=== PATIENT | male | born 1990 | race African-American/Black ===

== ENCOUNTER 2016-10-08 00:02 | Emergency (ER) | payer OTHER ==
[~2016-10-08] VITALS: Ht 170.2 cm; Wt 61.7 kg
[~2016-10-08 00:02] MED LIST: BENZ100C PO; HYDR-79 PO
[2016-10-08 00:16] VITALS: BP 127/76
--- NOTE | 2016-10-08 00:20 | PHYS DOC ---
General Chief Complaint: SHORTNESS OF BREATH Stated Complaint: HEADACHE SOA TIGHT CHEST CONGESTION Time Seen by MD: 00:19 Source: patient Problems: History of Present Illness Initial Comments Patient here for cough and shortness of breath. Patient says it started last night. He said he is felt hot and cold had some chills today at work, but has not taken his temperature. He's had a runny nose productive of yellow mucus. There is no earache or sore throat now. He did have a sore throat last night that seems to resolve. Patient's had a cough as well productive of yellow mucus , shortness of breath which is increased tonight which is what brought him to the emergency department. There is no chest pain. There is no nausea vomiting he 's been able tolerate by mouth food and fluids without difficulty. There is no abdominal pain. There's no change in bowel or bladder habits and has no focal extremity or neurologic complaints. Patient did have an inhaler at home and got after previous episode of bronchitis that used home without help. He is also use some [id number]-[id number] medication without help. He notes no other increased or decreasing factors. He has no known sick contacts. 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 Patient's past medical history is remarkable for asthma as a child. He says he has outgrown this. He does have an inhaler at home he says that sometimes when he gets sick he does have shortness of breath. He has no nebulizer. He is a nonsmoker and nonuser of ethanol. Allergies: Coded Allergies: beeswax (Unverified Allergy, Intermediate, sob, 04/12/14) Past Medical History Medical History: asthma Surgical History: noncontributory Social History Smoker: non-smoker Alcohol: none Review of Systems All Other Systems: Reviewed and Negative Physical Exam General Appearance: WD/WN, no apparent distress Ear, Nose, Throat: normal ENT inspection Neck: full range of motion, supple, normal inspection Respiratory: no respiratory distress, no accessory muscle use, decreased breath sounds, wheezing Cardiovascular: regular rate, rhythm, no edema Gastrointestinal: non tender, soft, no organomegaly Back: no CVA tenderness, no vertebral tenderness Extremities: non-tender, normal inspection, no pedal edema Neurologic/Psychiatric: alert, normal mood/affect, oriented x 3 Skin: normal color Lymphatic: no adenopathy Comments Generally this is a well-developed well-nourished male in no acute distress. Vitals are as noted. Pertinent findings on physical exam shows ears and throat were grossly clear. Neck is supple without adenopathy or JVD. There's no meningeal signs. Chest shows mildly decreased breath sounds throughout with significant inspiratory greater than expiratory wheezes, right greater than left. There is no retractions, no tachypnea, no difficulty with speech, and no signs of acute respiratory distress. Cardiac vascular exam shows regular rate and rhythm without murmur. Back shows no CVA tenderness. External ears are clear. Patient is awake alert oriented and cooperative. Remainder of physical exam is clinically unremarkable. Orders, Labs, Meds Old charts note occasional prior ER visits for viral syndrome, ankle sprain, dental caries, and kidney stone. Chest x-ray shows no acute changes per the emergency physician. 0100 Patient resting comfortably in the ED. He feels considerably better after single nebulizer treatment, and his breath sounds are much improved and only has just the barest hint of an expiratory wheeze in the left upper lobe. I discussed with the patient most likely diagnosis bronchitis with some bronchospasm. Respiratory fair therapy found he actually does have a compressor at home, but just did not have the tubing of the nebulizer device. We did administer his nebulizer that he received here in the emergency department, and I'll write him a prescription for albuterol Nebules to use at home. We'll also give him started on for several days of prednisone. We'll start him on some Zithromax as an antibiotic for his presumed bronchitis with his mucosa. We will prescribe some Tussionex as well for symptomatic relief. We discussed home care including rest, increasing fluids, use of Advil or Tylenol as needed for fever or pain. He voices understanding of the need to follow-up with primary care, to use his nebulizer at home, or return to the ER sooner as needed if worsening anyway. He looks well, with breath sounds much improved, feeling much better and back to normal as well, and okay for discharge home at this time. ANSLEY GONZALEZ MD Oct 08, 2016 00:19
[2016-10-08] MEDS ORDERED: ALBUTEROL SULFATE 2.5 MG/3 ML NEBU. ONE (00:42)
[2016-10-08] MEDS: ALBUTEROL SULFATE 2.5 MG/3 ML NEBU. NEB ONE (00:44)
[2016-10-08] MEDS: PREDNISONE 20 MG TABLET PO ONE (00:55)
[2016-10-08] MEDS ORDERED: AZITHROMYCIN 250 MG TABLET. ONE (01:16)
[2016-10-08] MEDS: AZITHROMYCIN 250 MG TABLET. PO ONE (01:19)
--- NOTE | 2016-10-08 07:16 | RAD ---
Chest, 2 views, 10/08/2016: History: Cough and congestion Comparison is made to a study from 04/20/2011. The heart size and pulmonary vascularity are normal. No pulmonary infiltrates are seen. There is no evidence of pleural fluid. IMPRESSION: No acute cardiopulmonary abnormality is detected.
== END 2016-10-08 01:21 | disposition home or self-care (01) ==
LOC: ER 00:04
DX: R05 Cough (principal); R06.02 Shortness of breath; R09.89 Other specified symptoms and signs involving the circulatory and respiratory systems; J45.909 Unspecified asthma, uncomplicated; Z91.048 Other nonmedicinal substance allergy status
CPT/HCPCS: 71020; 94640; 99284; J0456; J7512; J7613

== ENCOUNTER 2016-10-22 19:04 | Emergency (ER) | payer OTHER ==
[~2016-10-22] VITALS: Ht 162.6 cm; Wt 68.0 kg
[2016-10-22 19:45] VITALS: BP 133/76
[2016-10-22] MEDS ORDERED: HYDR-79 PO (19:51)
[2016-10-22] MEDS ORDERED: AMOX875T PO (19:51)
--- NOTE | 2016-10-22 19:53 | PHYS DOC ---
General Chief Complaint: DENTAL PROBLEM Stated Complaint: DENTAL PAIN Time Seen by MD: 19:06 Source: patient Exam Limitations: no limitations Problems: History of Present Illness Initial Comments Pt is 26/M to ED c/o dental pain. Pt states lower R back molar pain for one week. OTC was helping, pain worse today 9/10 throbbing worse chewing relieved with rest. No fever/chills/JONES/neck stiffness, no jaw or bony pain. Trying to get in to dentist, here requesting pain relief. Timing/Duration: last week Severity: severe Location: dental Prearrival Treatment: over the counter meds Associated Symptoms: tooth pain Allergies: Coded Allergies: beeswax (Unverified Allergy, Intermediate, sob, 04/12/14) Past Medical History Medical History: no pertinent history Surgical History: noncontributory Social History Smoker: non-smoker Alcohol: none Drugs: none Constitutional: denies chills, denies fever, denies malaise Ears: denies dizziness, denies pain, denies tinnitus Nose: denies clots, denies congestion, denies epistaxis Mouth: see HPI Throat: denies pain, denies swelling, denies neck stiffness Respiratory: denies cough, denies shortness of breath Cardiovascular: denies chest pain, denies palpitations Gastrointestinal: denies nausea, denies vomiting Neurological: denies headache, denies numbness, denies paresthesia Physical Exam General Appearance: WD/WN, mild distress Eyes: bilateral eye EOMI, bilateral eye PERRL, bilateral eye normal inspection Nose: normal inspection Mouth/Throat: other (gingival swelling lower left back molar no obvious tooth rot or trauma, no purulence or bony TTP) Neck: supple, trachea midline Cardiovascular/Respiratory: normal breath sounds, no respiratory distress Neurologic/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 Rx: amoxicillin, vicoprofen #20 Take meds with food. Follow up with your dentist for resolution of this condition. Call tomorrow to schedule appointment. Return to ED with new or changing symptoms. ISABELA PINON DO October 22, 2016 19:53
[2016-10-22] MEDS ORDERED: AMOXICILLIN 500 MG CAPSULE PO ONE ×2 (20:00)
== END 2016-10-22 20:00 | disposition home or self-care (01) ==
LOC: ER 19:04
DX: K04.7 Periapical abscess without sinus (principal); Z91.030 Bee allergy status
CPT/HCPCS: 99283

== ENCOUNTER 2016-11-13 14:33 | Emergency (ER) | payer OTHER ==
[~2016-11-13] VITALS: Ht 170.2 cm; Wt 68.0 kg
[~2016-11-13 14:33] MED LIST changes: +AMOX875T PO
[2016-11-13 14:52] VITALS: BP 144/66
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
--- NOTE | 2016-11-13 15:15 | PHYS DOC ---
Past History Past Medical History: No Pertinent History Past Surgical History: No Surgical History Alcohol Use: None Drug Use: None Adult General Chief Complaint Chief Complaint: SHOULDER INJURY HPI HPI This 26-year-old man was wrestling with another person and he injured his right shoulder. He states he is just pain in the right shoulder with any movement. He denies any other injuries and presents now for evaluation Review of Systems Review of Systems Constitutional: Denies fever or chills [] Eyes: Denies change in visual acuity, redness, or eye pain [] HENT: Denies nasal congestion or sore throat [] Respiratory: Denies cough or shortness of breath [] Cardiovascular: No additional information not addressed in HPI [] GI: Denies abdominal pain, nausea, vomiting, bloody stools or diarrhea [] : Denies dysuria or hematuria [] Musculoskeletal: Integument: Denies rash or skin lesions [] Neurologic: Denies headache, focal weakness or sensory changes [] Endocrine: Denies polyuria or polydipsia [] Allergies Allergies Allergies Coded Allergies Type Severity Reaction Last Updated Verified beeswax Allergy Intermediate sob 04/12/14 No Physical Exam Physical Exam Constitutional: Well developed, well nourished, no acute distress, non-toxic appearance. [] HENT: Normocephalic, atraumatic, bilateral external ears normal, oropharynx moist, no oral exudates, nose normal. [] Eyes: PERRLA, EOMI, conjunctiva normal, no discharge. [] Neck: Normal range of motion, no tenderness, supple, no stridor. [] Cardiovascular:Heart rate regular rhythm, no murmur [] Lungs & Thorax: Bilateral breath sounds clear to auscultation [] Abdomen: Bowel sounds normal, soft, no tenderness, no masses, no pulsatile masses. [] Skin: Warm, dry, no erythema, no rash. [] Back: No tenderness, no CVA tenderness. [] Extremities: Patient is tender over his right shoulder over the muscles of his shoulders and there is no deep bony tenderness patient can AP abduct his right arm he can internally rotate and abduct without difficulty] Neurologic: Alert and oriented X 3, normal motor function, normal sensory function, no focal deficits noted. [] Psychologic: Affect normal, judgement normal, mood normal. [] EKG EKG [] Radiology/Procedures Radiology/Procedures X-rays of the shoulder all negative [] Impressions: Contusion right shoulder strain right shoulder Course & Med Decision Making Course & Med Decision Making Pertinent Labs and Imaging studies reviewed. (See chart for details) The patient was reassured and instructed to wear a sling for comfort ibuprofen or Naprosyn for pain and follow-up with his doctor as needed [] Dragon Disclaimer Dragon Disclaimer This chart was dictated in whole or in part using Voice Recognition software in a busy, high-work load, and often noisy Emergency Department environment. It may contain unintended and wholly unrecognized errors or omissions. Departure Departure: Referrals: VIMAL CONNER (PCP) LAKIA ROJAS MD November 13, 2016 15:15
== END 2016-11-13 15:20 | disposition home or self-care (01) ==
LOC: ER 14:33
DX: S46.911A Strain of unspecified muscle, fascia and tendon at shoulder and upper arm level, right arm, initial encounter (principal); Z91.030 Bee allergy status; W51.XXXA Accidental striking against or bumped into by another person, initial encounter; Y93.72 Activity, wrestling; Y92.89 Other specified places as the place of occurrence of the external cause; Y99.8 Other external cause status
CPT/HCPCS: 73030; 99284

== ENCOUNTER 2017-08-23 05:15 | Emergency (ER) | payer OTHER ==
[~2017-08-23] VITALS: Ht 170.2 cm; Wt 70.3 kg
[2017-08-23 05:15] VITALS: BP 137/83
[2017-08-23] MEDS ORDERED: AZIT250T PO (06:16)
[2017-08-23] MEDS ORDERED: HYDR115S2 PO (06:16)
--- NOTE | 2017-08-23 06:16 | PHYS DOC ---
Past History Past Medical History: No Pertinent History Past Surgical History: No Surgical History Smoking: Cigarettes, Less than 1pk/day Alcohol Use: None Drug Use: None Adult General Chief Complaint Chief Complaint: SORE THROAT [facility] 27-year-old male patient complaining of sore throat, nasal congestion and dry cough for the last 1 week with headache and fever up to 101 after he had exposure to influenza at home. Patient states he woke up this morning because of increasing sore throat that getting worse with swallowing and eating and rated his pain 9/10. Patient denies chest pain, shortness of breath, vomiting. Patient states he had a few episodes of diarrhea yesterday. Review of Systems Review of Systems Constitutional: Reports fever and chills [] Eyes: Denies change in visual acuity, redness, or eye pain [] HENT: Report nasal congestion and sore throat [] Respiratory: Report cough, denies shortness of breath [] Cardiovascular: No additional information not addressed in HPI [] GI: Denies abdominal pain, nausea, vomiting, bloody stools , reports diarrhea [] : Denies dysuria or hematuria [] Musculoskeletal: Denies back pain or joint pain [] Integument: Denies rash or skin lesions [] Neurologic: Denies focal weakness or sensory changes , reports headache[] Endocrine: Denies polyuria or polydipsia [] All other systems were reviewed and found to be within normal limits, except as documented in this note. Allergies Allergies Allergies Coded Allergies Type Severity Reaction Last Updated Verified beeswax Allergy Intermediate sob 04/12/14 No fish derived Allergy Intermediate 08/23/17 Yes shellfish derived Allergy Intermediate 08/23/17 Yes Physical Exam Physical Exam Constitutional: Well developed, well nourished, mild distress, non-toxic appearance. [] HENT: Normocephalic, atraumatic, bilateral external ears normal, pharyngeal erythema and edema without exudate ,oropharynx moist, nasal congestion Eyes: PERRLA, EOMI, conjunctiva normal, no discharge. [] Neck: Normal range of motion, no tenderness, supple, no stridor. [] Cardiovascular:Heart rate regular rhythm, no murmur [] Lungs & Thorax: Bilateral breath sounds clear to auscultation [] Abdomen: Bowel sounds normal, soft, no tenderness, no masses, no pulsatile masses. [] Skin: Warm, dry, no erythema, no rash. [] Back: No tenderness, no CVA tenderness. [] Extremities: No tenderness, no cyanosis, no clubbing, ROM intact, no edema. [] Neurologic: Alert and oriented X 3, normal motor function, normal sensory function, no focal deficits noted. [] Psychologic: Affect normal, judgement normal, mood normal. [] EKG EKG [] Radiology/Procedures Radiology/Procedures [] Course & Med Decision Making Course & Med Decision Making Evaluation of patient in ER showed 27-year-old male patient with complaining of upper respiratory symptoms and sore throat for one week after exposure to flu. Patient did not want to have sick or flu test. Patient treated with ibuprofen in ER and plan to discharge home with diagnosis of pharyngitis and upper respiratory infection. Patient instructed to quit smoking. Dragon Disclaimer Dragon Disclaimer This electronic medical record was generated, in whole or in part, using a voice recognition dictation system. Departure Departure: Impression: Primary Impression: Flu-like symptoms Additional Impressions: Pharyngitis Tobacco abuse Tobacco abuse counseling Disposition: 01 HOME, SELF-CARE Condition: STABLE Referrals: VIMAL CONNER (PCP) Patient Instructions: Upper Respiratory Infection, Adult, Viral and Bacterial Pharyngitis Additional Instructions: Drink plenty liquid Follow up with your physician or return to ER if not getting better in 3-5 days Scripts Azithromycin (ZITHROMAX) 250 Mg Tablet 1 PKG PO UD, #1 PKG Prov: TERESO CHUN MD 08/23/17 Hydrocodone/Chlorphen P-Stirex (Tussionex Pennkinetic Susp) 115 Ml Jay[place].er.12h 5 ML PO BID, #120 ML Prov: TERESO CHUN MD 08/23/17 Problem Qualifiers TERESO CHUN MD Aug 23, 2017 06:16
[2017-08-23] MEDS ORDERED: IBUPROFEN 400 MG TABLET. PO ONE (06:30)
== END 2017-08-23 06:15 | disposition home or self-care (01) ==
LOC: ER 05:15
DX: J02.9 Acute pharyngitis, unspecified (principal); R19.7 Diarrhea, unspecified; R51 Headache; F17.210 Nicotine dependence, cigarettes, uncomplicated; Z71.6 Tobacco abuse counseling; Z91.013 Allergy to seafood; Z91.048 Other nonmedicinal substance allergy status
CPT/HCPCS: 99283

== ENCOUNTER 2017-08-25 22:17 | Emergency (ER) | payer OTHER ==
[~2017-08-25] VITALS: Ht 170.2 cm; Wt 70.3 kg
[~2017-08-25 22:17] MED LIST changes: +AZIT250T PO; +HYDR115S2 PO
[2017-08-25 22:33] VITALS: BP 132/86
[2017-08-25] MEDS ORDERED: OXYMETAZOLINE 0.05% NASAL SPRAY 15ML BOTTLE. NS ONE ×2 (23:24→23:45)
[2017-08-25] MEDS ORDERED: AMOX1TAB61 PO (23:25)
[2017-08-25] MEDS ORDERED: FLUT9.9S NS (23:25)
--- NOTE | 2017-08-25 23:25 | PHYS DOC ---
Past History Past Medical History: Asthma Past Surgical History: No Surgical History Smoking: Cigarettes, Less than 1pk/day Alcohol Use: None Drug Use: None Adult General Chief Complaint Chief Complaint: OTHER COMPLAINTS HPI HPI Patient is a 27 year old M who presents with bilateral sinus pressure over the past 2-3 days. Keith was seen in the emergency department 2 days ago and given a Z-Saul. He also states that he is use nasal saline rinses. He describes pressure in his forehead and cheeks. He also describes mild pain in his right ear. He denies fevers sweats or chills. He does have mild sore throat that is worse with swallowing. He is able to tolerate eating and drinking. He denies shortness of breath. Has no other associated symptoms at this time. He is not exacerbating or relieving factors. Review of Systems Review of Systems Constitutional: Denies fever or chills [] Eyes: Denies change in visual acuity, redness, or eye pain [] HENT: Negative except history of present illness Respiratory: Denies cough or shortness of breath [] Cardiovascular: No additional information not addressed in HPI [] GI: Denies abdominal pain, nausea, vomiting, bloody stools or diarrhea [] : Denies dysuria or hematuria [] Musculoskeletal: Denies back pain or joint pain [] Integument: Denies rash or skin lesions [] Neurologic: Denies focal weakness or sensory changes [] Endocrine: Denies polyuria or polydipsia [] All other systems were reviewed and found to be within normal limits, except as documented in this note. Family History Family History No pertinent family medical history was reported Current Medications Current Medications Current medications reviewed Current Medications Medications (Trade) Dose Ordered Sig/Eunice Start Time Stop Time Status Last Admin Dose Admin Oxymetazoline HCl (Afrin) 2 spray 1X ONCE 08/25/17 23:30 08/25/17 23:31 UNV Allergies Allergies Allergies Coded Allergies Type Severity Reaction Last Updated Verified beeswax Allergy Intermediate sob 04/12/14 No fish derived Allergy Intermediate 08/23/17 Yes shellfish derived Allergy Intermediate 08/23/17 Yes Physical Exam Physical Exam Constitutional: Well developed, well nourished, no acute distress, non-toxic appearance. [] HENT: Normocephalic, atraumatic, mild to moderate bilateral nasal mucosa erythema and edema, mild marginal right TM erythema, no superficial erythema noted on the face however tenderness was noted in both the frontal and maxillary sinuses bilaterally, mild tonsillar edema was noted Eyes: EOMI, conjunctiva normal, no discharge. [] Neck: Normal range of motion, no tenderness, supple, no stridor. [] Cardiovascular:Heart rate regular rhythm, Lungs & Thorax: Bilateral breath sounds clear to auscultation [] Abdomen: Bowel sounds normal, soft, no tenderness, no masses, no pulsatile masses. [] Skin: Warm, dry, no erythema, no rash. Extremities: No tenderness, no cyanosis, no clubbing, ROM intact, no edema. [] Neurologic: Alert and oriented X 3, normal motor function, normal sensory function, no focal deficits noted. [] Psychologic: Affect normal, judgement normal, mood normal. [] Current Patient Data Vital Signs Vital Signs Date Time Temp Pulse Resp B/P (MAP) Pulse Ox O2 Delivery O2 Flow Rate FiO2 08/25/17 22:33 98.6 88 16 97 Room Air EKG EKG [] Radiology/Procedures Radiology/Procedures [] Course & Med Decision Making Course & Med Decision Making Pertinent Labs and Imaging studies reviewed. (See chart for details) [] Dragon Disclaimer Dragon Disclaimer This electronic medical record was generated, in whole or in part, using a voice recognition dictation system. Departure Departure: Impression: Primary Impression: Sinusitis Disposition: 01 HOME, SELF-CARE Condition: STABLE Referrals: VIMAL CONNER (PCP) Patient Instructions: Sinusitis Additional Instructions: Keith was seen in the emergency department for sinus pressure. No emergency medical condition was found on history or physical exam. His symptoms are most consistent with sinusitis secondary to rhinitis. He is encouraged continue nasal saline rinses. He was also advised to use nasal steroid spray as well as Afrin as needed. He was advised to limit his Afrin use to a maximum of 3 days. He was also given a new prescription for Augmentin to replace his Z-Saul. He was advised follow-up with his primary care doctor as needed for further management. Scripts Fluticasone Propionate (Flonase Allergy Relief) 9.9 Ml [place].susp 1 SPRAYS NS BID for 7 Days, BOTTLE Prov: DEBBI SANCHEZ MD 08/25/17 Amoxicillin/Potassium Clav (AUGMENTIN 875-125 TABLET) 1 Each Tablet 1 TAB PO BID for 7 Days, #14 TAB Prov: DEBBI SANCHEZ MD 08/25/17 Problem Qualifiers Primary Impression: Sinusitis Sinusitis location: frontal Chronicity: subacute Qualified Codes: J01.10 - Acute frontal sinusitis, unspecified DEBBI SANCHEZ MD Aug 25, 2017 23:25
== END 2017-08-25 23:30 | disposition home or self-care (01) ==
LOC: ER 22:17
DX: J01.10 Acute frontal sinusitis, unspecified (principal); H92.01 Otalgia, right ear; J45.909 Unspecified asthma, uncomplicated; F17.210 Nicotine dependence, cigarettes, uncomplicated; Z91.013 Allergy to seafood; Z91.018 Allergy to other foods
CPT/HCPCS: 99283

== ENCOUNTER 2017-09-02 09:24 | Emergency (ER) | payer SELFPAY ==
[~2017-09-02] VITALS: Ht 170.2 cm; Wt 69.4 kg
[~2017-09-02 09:24] MED LIST changes: +AMOX1TAB61 PO; +FLUT9.9S NS
[2017-09-02] MEDS ORDERED: NAPR-683 PO (10:02)
[2017-09-02] MEDS ORDERED: CYCL-331 PO (10:02)
--- NOTE | 2017-09-02 10:09 | PHYS DOC ---
General Chief Complaint: BACK PAIN OR INJURY Stated Complaint: BACK PAIN Time Seen by MD: 09:26 Source: patient Exam Limitations: no limitations Problems: History of Present Illness Initial Comments 27-year-old male comes the ED complaining of low back pain. Patient states that he's had moderate pain across his entire low back for the past 24 hours. He states that prior to the pain he was playing basketball but denies any falls or traumatic events while playing. 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 No leg weakness no bowel or bladder symptoms no saddle anesthesia. Symptoms are worsened with movement improved with rest patient is missing work today and is requesting a note. He says that he is normally healthy and takes no daily medications. Timing/Duration: 24 hours Severity: moderate Modifying Factors: worse with movement, improves with rest Associated Symptoms: other Allergies: Coded Allergies: beeswax (Unverified Allergy, Intermediate, sob, 04/12/14) fish derived (Verified Allergy, Intermediate, 08/23/17) [place] shellfish derived (Verified Allergy, Intermediate, 08/23/17) Past Medical History Medical History: asthma Surgical History: noncontributory Social History Smoker: cigarettes Alcohol: none Drugs: none Review of Systems Constitutional: denies chills, denies diaphoresis, denies fever, denies malaise Respiratory: denies cough, denies shortness of breath Cardiovascular: denies chest pain, denies palpitations Gastrointestinal: denies nausea, denies vomiting Genitourinary: see HPI, denies frequency, denies hematuria Musculoskeletal: see HPI Psychiatric/Neurological: see HPI Physical Exam General Appearance: WD/WN, no apparent distress Ear, Nose, Throat: hearing grossly normal, normal ENT inspection Neck: full range of motion, supple Respiratory: normal breath sounds, no respiratory distress Cardiovascular: normal peripheral pulses, regular rate, rhythm Gastrointestinal: non tender, soft Back: no CVA tenderness, no vertebral tenderness Extremities: normal range of motion, non-tender Neurologic/Psychiatric: ict help 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 We will treat symptomatically and if symptoms do not improve or recur patient agrees to follow-up with his doctor. I discussed activity modification [id number] prescription medications and PCP follow-up. Discussed signs and symptoms to monitor as well as indications for urgent return department. His questions were answered satisfaction recommended smoking cessation patient expressed agreement and understanding with the treatment plan. Departure Time of Disposition: 10:05 Disposition: 01 HOME, SELF-CARE Diagnosis: low back strain Condition: GOOD Patient Instructions: Back Exercises, Generic, SportsMed, Low Back Strain with Rehab-SportsMed Additional Instructions: Please review the patient education materials given by ED staff regarding low back strain as well as prescribed exercises. Aggressive hydration with Gatorade and Powerade. Warm Epsom salt soaks 3 times daily as your able. Heating pad to affected area 15-20 minutes 4-6 times daily followed by gentle stretching. Consider reputable massage therapy or chiropractor, you may be able to get a same-day appointment today. [id number] Tylenol for baseline discomfort. Prescription: Cyclobenzaprine 10 mg quantity 30, Naprosyn 500 mg quantity 20 Sedation precautions with cyclobenzaprine. Take Naprosyn with food. Keep activity level to "pain free." Follow-up with a doctor in 1-2 weeks for recheck. Return to ED with new or changing symptoms. ALEXIA PINON DO Sep 02, 2017 10:09
[2017-09-02] MEDS ORDERED: KETOROLAC 60 MG/2 ML VIAL. IM ONE (10:15)
[2017-09-02 10:30] VITALS: BP 136/81
== END 2017-09-02 10:30 | disposition home or self-care (01) ==
LOC: ER 09:24
DX: S39.012A Strain of muscle, fascia and tendon of lower back, initial encounter (principal); J45.909 Unspecified asthma, uncomplicated; F17.210 Nicotine dependence, cigarettes, uncomplicated; Z91.013 Allergy to seafood; Z91.048 Other nonmedicinal substance allergy status; X58.XXXA Exposure to other specified factors, initial encounter; Y93.67 Activity, basketball; Y99.8 Other external cause status; Y92.89 Other specified places as the place of occurrence of the external cause
CPT/HCPCS: 99283

== ENCOUNTER 2018-03-30 21:07 | Emergency (ER) | payer OTHER ==
[~2018-03-30] VITALS: Ht 170.2 cm; Wt 64.0 kg
[~2018-03-30 21:07] MED LIST changes: +CYCL-331 PO; +NAPR-683 PO
[2018-03-30 21:10] VITALS: BP 121/81
--- NOTE | 2018-03-30 21:10 | ED.ADGEN ---
Past History Past Medical History: Asthma Past Surgical History: No Surgical History Smoking: Cigarettes, Less than 1pk/day Alcohol Use: None Drug Use: None Adult General Chief Complaint Chief Complaint ".. I just bent over to chicken picker my kids toy... and all sudden I got back pain.. I ve been using heat on it...but that has not helped...and I also got these bug bites to my arms... maybe bed bugs.. because the one hotel.. had bed bugs... " HPI HPI Patient is a 27 year old male who presents with above hx of insect bite and back pain. Patient does appear to have insect bites primarily on left upper arm and a bite on right upper arm. Possible insect bite on left side of neck. Does appear to be some surrounding inflammation. No adenopathy or striations. Patient's back pain is localized in the lumbar sacral area. Pt. rates pain 6/ 10. No midline tenderness. There is some radiation into left sciatic area. Patient denies any problems with defecation or urination. Patient denies any history of immunosuppression fevers or cancer. Patient does not return his last tetanus vaccination. Recent travel from [place]. Review of Systems Review of Systems Constitutional: Denies fever or chills [] Eyes: Denies change in visual acuity, redness, or eye pain [] HENT: Denies nasal congestion or sore throat [] Respiratory: Denies cough or shortness of breath [] Cardiovascular: No additional information not addressed in HPI [] GI: Denies abdominal pain, nausea, vomiting, bloody stools or diarrhea [] : Denies dysuria or hematuria [] Musculoskeletal: complaints of lumbar sacral back pain Integument: Denies rash . complaints of insect bites. Neurologic: Denies headache, focal weakness or sensory changes [] Endocrine: Denies polyuria or polydipsia [] All other systems were reviewed and found to be within normal limits, except as documented in this note. Family History Family History Noncontributory Current Medications Current Medications Current Medications Medications (Trade) Dose Ordered Sig/Eunice Start Time Stop Time Status Last Admin Dose Admin Ketorolac Tromethamine (Toradol Im) 60 mg 1X ONCE 03/30/18 21:45 03/30/18 21:46 DC 03/30/18 21:47 60 MG Tetanus/ Diphtheria Toxoids Adsorbed (Tenivac Vial) 0.5 ml ONCE ONCE 03/30/18 21:45 03/30/18 21:46 DC 03/30/18 21:51 0.5 ML Trimethoprim/ Sulfamethoxazole (Bactrim Ds) 1 tab 1X ONCE 03/30/18 21:45 03/30/18 21:46 DC 03/30/18 21:51 1 TAB Allergies Allergies Allergies Coded Allergies Type Severity Reaction Last Updated Verified beeswax Allergy Intermediate sob 03/30/18 No fish derived Allergy Intermediate 03/30/18 Yes shellfish derived Allergy Intermediate 03/30/18 Yes Physical Exam Physical Exam Constitutional: Well developed, well nourished, moderately acute distress, non- toxic appearance. [] HENT: Normocephalic, atraumatic, bilateral external ears normal, oropharynx moist, no oral exudates, nose normal. [] Eyes: PERRLA, EOMI, conjunctiva normal, no discharge. [] Neck: Normal range of motion, no tenderness, supple, no stridor. [] Cardiovascular:Heart rate regular rhythm, no murmur [] Lungs & Thorax: Bilateral breath sounds equal with few scattered wheezes on auscultation [] Abdomen: Bowel sounds normal, soft, no tenderness, no masses, no pulsatile masses. [] No saddle loss noted. Circumcised male. Skin: Warm, dry, no erythema, no rash. [] Insect bites as per history of present illness. Tattoos Back: Lumbar sacral muscle tenderness, no CVA tenderness. [] No midline tenderness. Extremities: No tenderness, no cyanosis, no clubbing, ROM intact, no edema. [] Straight leg lift mild sciatic pain on left. DTRs +2 at patella. Patient is ambulatory without problems. Neurologic: Alert and oriented X 3, normal motor function, normal sensory function, no focal deficits noted. [] Psychologic: Affect anxious, judgement normal, mood normal. [] EKG EKG [] Radiology/Procedures Radiology/Procedures [] Course & Med Decision Making Course & Med Decision Making Pertinent Labs and Imaging studies reviewed. (See chart for details). Patient use ice packs as needed. Patient take Tylenol and ibuprofen for pain. Marked discomfort may take Vicoprofen up 4 times a day. May use Flexeril 10 mg up 3 times a day for muscle spasm. If no improvement may need further evaluation. Follow-up primary care. Patient to massage insect bites with Polysporin 4 times a day until healed. Patient take Bactrim DS 1 tablet twice a day for the next 7 days. Return if any concerns. Patient's tetanus was updated. [] Final Impression Final Impression 1. Hx Insect bite 2. Back Pain[]- Lumbar sacral Dragon Disclaimer Dragon Disclaimer This electronic medical record was generated, in whole or in part, using a voice recognition dictation system. ABDIRIZAK VALDES MD Mar 30, 2018 21:10
[2018-03-30] MEDS ORDERED: SULF1TAB24 PO (21:23)
[2018-03-30] MEDS ORDERED: CYCL-331 PO (21:23)
[2018-03-30] MEDS ORDERED: HYDR-79 PO (21:23)
[2018-03-30] MEDS ORDERED: unisom (21:36)
[2018-03-30] MEDS ORDERED: IBUP800T19 PO (21:37)
[2018-03-30] MEDS ORDERED: KETOROLAC 60 MG/2 ML VIAL. IM ONE (21:45)
[2018-03-30] MEDS ORDERED: SMZ/TMP 800/160MG TABLET. PO ONE (21:45)
[2018-03-30] MEDS ORDERED: TETANUS AND DIPHTHERIA TOX/PF 0.5 ML VIAL. VAX IM ONE (21:45)
== END 2018-03-30 21:58 | disposition home or self-care (01) ==
LOC: ER 21:07
DX: M54.5 Low back pain (principal); S60.562A Insect bite (nonvenomous) of left hand, initial encounter; S60.561A Insect bite (nonvenomous) of right hand, initial encounter; J45.909 Unspecified asthma, uncomplicated; F17.210 Nicotine dependence, cigarettes, uncomplicated; Z88.8 Allergy status to other drugs, medicaments and biological substances; Z91.013 Allergy to seafood; W57.XXXA Bitten or stung by nonvenomous insect and other nonvenomous arthropods, initial encounter; Y93.89 Activity, other specified; Y92.89 Other specified places as the place of occurrence of the external cause; Y99.8 Other external cause status
CPT/HCPCS: 90471; 90714; 96372; 99284; J1885

== ENCOUNTER 2018-05-10 17:16 | Emergency (ER) | payer OTHER ==
[~2018-05-10] VITALS: Ht 170.2 cm; Wt 68.0 kg
[~2018-05-10 17:16] MED LIST changes: +IBUP800T19 PO; +SULF1TAB24 PO; +unisom
[2018-05-10 17:25] VITALS: BP 130/72
[2018-05-10] MEDS ORDERED: OXYC-323 PO (17:46)
--- NOTE | 2018-05-10 17:46 | PHYS DOC ---
Past History Past Medical History: No Pertinent History Past Surgical History: Other Smoking: Cigarettes, Less than 1pk/day Alcohol Use: None Drug Use: None Adult General Chief Complaint Chief Complaint: ANKLE PROBLEM HPI HPI Patient is a 28-year-old male who presents with right lower leg pain after running out of pain medication. Patient was diagnosed with Achilles tendon rupture on the of this month. Patient had been playing basketball when the injury occurred. He states that he was given a three-day prescription for oxycodone and he ran out of his medication yesterday. Patient states that he has been taking naproxen, ibuprofen and Goody powder without relief. He has an appointment with orthopedics this coming Saturday the . Review of Systems Review of Systems Constitutional: Denies fever or chills [] Respiratory: Denies cough or shortness of breath [] Cardiovascular: No additional information not addressed in HPI [] Musculoskeletal: Right lower leg/calf pain[] Integument: Denies rash or skin lesions [] Allergies Allergies Allergies Coded Allergies Type Severity Reaction Last Updated Verified beeswax Allergy Intermediate sob 03/30/18 No fish derived Allergy Intermediate 03/30/18 Yes shellfish derived Allergy Intermediate 03/30/18 Yes Physical Exam Physical Exam Constitutional: Well developed, well nourished, no acute distress, non-toxic appearance. [] Cardiovascular:Heart rate regular rhythm, no murmur [] Lungs & Thorax: Bilateral breath sounds clear to auscultation [] Extremities: Right leg is in ortho boot. Boot not removed for further examination. [] Neurologic: Alert and oriented X 3, normal motor function, normal sensory function, no focal deficits noted. [] Current Patient Data Vital Signs Vital Signs Date Time Temp Pulse Resp B/P (MAP) Pulse Ox O2 Delivery O2 Flow Rate FiO2 05/10/18 17:25 98.3 84 16 99 Room Air EKG EKG [] Radiology/Procedures Radiology/Procedures [] Course & Med Decision Making Course & Med Decision Making Pertinent Labs and Imaging studies reviewed. (See chart for details) [] Dragon Disclaimer Dragon Disclaimer This electronic medical record was generated, in whole or in part, using a voice recognition dictation system. Departure Departure: Impression: Primary Impression: Achilles rupture, right Disposition: HOME, SELF-CARE Condition: STABLE Referrals: VIMAL CONNER (PCP) Patient Instructions: Achilles Tendon Rupture (Complete) Scripts Oxycodone Hcl/Acetaminophen (PERCOCET 5-325 MG TABLET) 1 Each Tablet 1 TAB PO QID PRN for PAIN, #20 TAB Prov: ANISHA GIRON Jr., DO 05/10/18 Problem Qualifiers Primary Impression: Achilles rupture, right Encounter type: initial encounter Qualified Codes: S86.011A - Strain of right Achilles tendon, initial encounter ANISHA GIRON Jr., DO May 10, 2018 17:46
[2018-05-10] MEDS ORDERED: oxyCODONE/APAP 5/325 1 TAB TABLET PO ONE (18:00)
== END 2018-05-10 17:52 | disposition home or self-care (01) ==
LOC: ER 17:16
DX: S86.011A Strain of right Achilles tendon, initial encounter (principal); F17.210 Nicotine dependence, cigarettes, uncomplicated; Z91.013 Allergy to seafood; Z91.048 Other nonmedicinal substance allergy status; X58.XXXA Exposure to other specified factors, initial encounter; Y93.67 Activity, basketball; Y92.89 Other specified places as the place of occurrence of the external cause; Y99.8 Other external cause status
CPT/HCPCS: 99283

== ENCOUNTER 2018-06-01 01:17 | Emergency (ER) | payer OTHER ==
[~2018-06-01] VITALS: Ht 170.2 cm; Wt 68.0 kg
[~2018-06-01 01:17] MED LIST changes: +HYDR-1179 PO; -HYDR-79 PO; +OXYC1TAB15 PO
--- NOTE | 2018-06-01 01:20 | ED.ADGEN ---
Past History Past Medical History: No Pertinent History, Anxiety Past Surgical History: Other Additional Past Surgical Histo: Recent Rt. Achilles tendon repair 05/23/18 Smoking: Cigarettes, Less than 1pk/day Alcohol Use: None Drug Use: None Adult General Chief Complaint Chief Complaint ".. I just don't want to be alive anymore... been thinking about killing my self.. I ve never had these thoughts before... I got all kinds of shit .. stress crap.... my father who I have not seen for 20 yrs showed up... 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 my girl friend is giving me shit... I can't work because of this messed up leg....".. " I just don't want to be alive anymore..." HPI HPI Patient is a 28 year old male who presents with above hx and complaints depression, anxiety and suicidal ideation. Patient does not have any specific plan he admits to forming. Patient denies illicit drug use. Patient denies previous history of depression. Patient has recently underwent Achilles tendon repair from an injury on 05/04 on 05/23. Patient reports multiple social stressors- with girlfriend, father, and inability to work. Patient denies any legal issues. No recent travel or specific ill contacts. No history immunosuppression. Review of Systems Review of Systems Constitutional: Denies fever or chills [] Eyes: Denies change in visual acuity, redness, or eye pain [] HENT: Denies nasal congestion or sore throat [] Respiratory: Denies cough or shortness of breath [] Cardiovascular: No additional information not addressed in HPI [] GI: Denies abdominal pain, nausea, vomiting, bloody stools or diarrhea [] : Denies dysuria or hematuria [] Musculoskeletal: Denies back pain or joint pain []complaints of right Achilles pain from surgery on -Achilles tendon repair. Integument: Denies rash or skin lesions [] Neurologic: Denies headache, focal weakness or sensory changes [] Endocrine: Denies polyuria or polydipsia [] All other systems were reviewed and found to be within normal limits, except as documented in this note. Family History Family History Father had history of polysubstance abuse Current Medications Current Medications Current Medications Medications (Trade) Dose Ordered Sig/Eunice Start Time Stop Time Status Last Admin Dose Admin Ibuprofen (Motrin) 600 mg 1X ONCE 06/01/18 05:00 06/01/18 05:01 DC 06/01/18 04:50 600 MG Lactated Ringer's 1,000 ml @ 1,000 mls/hr Q1H 06/01/18 01:33 06/01/18 02:32 DC 06/01/18 02:26 1,000 MLS/HR Potassium Chloride (KCl Oral Soln) 20 meq 1X ONCE 06/01/18 04:30 06/01/18 04:31 DC 06/01/18 04:50 20 MEQ Allergies Allergies Allergies Coded Allergies Type Severity Reaction Last Updated Verified beeswax Allergy Intermediate sob 03/30/18 No fish derived Allergy Intermediate 03/30/18 Yes shellfish derived Allergy Intermediate 03/30/18 Yes Physical Exam Physical Exam Constitutional: Well developed, well nourished, in moderate emotional distress, non-toxic appearance. [] HENT: Normocephalic, atraumatic, bilateral external ears normal, oropharynx moist, no oral exudates, nose normal. [] Eyes: PERRLA, EOMI, conjunctiva normal, no discharge. [] Neck: Normal range of motion, no tenderness, supple, no stridor. [] Cardiovascular:Heart rate regular rhythm, no murmur [] Lungs & Thorax: Bilateral breath sounds clear to auscultation [] Abdomen: Bowel sounds normal, soft, no tenderness, no masses, no pulsatile masses. [] Skin: Warm, dry, no erythema, no rash. [] Back: No tenderness, no CVA tenderness. [] Extremities: No tenderness, no cyanosis, no clubbing, ROM intact, no edema. [] Neurologic: Alert and oriented X 3, normal motor function, normal sensory function, no focal deficits noted. [] Psychologic: Affect anxious, judgement normal, mood depressed. Poor eye contact. Current Patient Data Vital Signs Vital Signs Date Time Temp Pulse Resp B/P (MAP) Pulse Ox O2 Delivery O2 Flow Rate FiO2 06/01/18 02:49 98.7 103 18 97 Room Air Lab Results Laboratory Tests Test 06/01/18 02:15 White Blood Count 7.1 x10^3/uL (4.0-11.0) Red Blood Count 4.73 x10^6/uL (4.30-5.70) Hemoglobin 13.8 g/dL (13.0-17.5) Hematocrit 40.0 % (39.0-53.0) Mean Corpuscular Volume 85 fL (79-100) Mean Corpuscular Hemoglobin 29 pg (25-35) Mean Corpuscular Hemoglobin Concent 34 g/dL (31-37) Red Cell Distribution Width 12.6 % (11.5-14.5) Platelet Count 237 x10^3/uL (140-400) Neutrophils (%) (Auto) 57 % (31-73) Lymphocytes (%) (Auto) 33 % (24-48) Monocytes (%) (Auto) 8 % (0-9) Eosinophils (%) (Auto) 2 % (0-3) Basophils (%) (Auto) 1 % (0-3) Neutrophils # (Auto) 4.0 x10^3uL (1.8-7.7) Lymphocytes # (Auto) 2.3 x10^3/uL (1.0-4.8) Monocytes # (Auto) 0.5 x10^3/uL (0.0-1.1) Eosinophils # (Auto) 0.1 x10^3/uL (0.0-0.7) Basophils # (Auto) 0.0 x10^3/uL (0.0-0.2) Urine Collection Type Unknown Urine Color Red Urine Clarity Cloudy Urine pH 6.0 Urine Specific [place] 1.010 Urine Protein 30 mg/dl (NEG-TRACE) Urine Glucose (UA) Neg mg/dL (NEG) Urine Ketones (Stick) Neg mg/dL (NEG) Urine Blood Large (NEG) Urine Nitrite Neg (NEG) Urine Bilirubin Neg (NEG) Urine Urobilinogen Dipstick 0.2 mg/dL (0.2 mg/dL) Urine Leukocyte Esterase Neg (NEG) Urine RBC Tntc /HPF (0-2) Urine WBC Occ /HPF (0-4) Urine Squamous Epithelial Cells Occ /LPF Urine Bacteria 0 /HPF (0-FEW) Sodium Level 142 mmol/L (136-145) Potassium Level 3.2 mmol/L (3.5-5.1) L Chloride Level 103 mmol/L (98-107) Carbon Dioxide Level 24 mmol/L (21-32) Anion Gap 15 (6-14) H Blood Urea Nitrogen 11 mg/dL (8-26) Creatinine 0.9 mg/dL (0.7-1.3) Estimated GFR (Cockcroft-Gault) 123.4 Glucose Level 96 mg/dL (70-99) Calcium Level 8.9 mg/dL (8.5-10.1) Total Bilirubin 0.4 mg/dL (0.2-1.0) Direct Bilirubin 0.1 mg/dL (0.0-0.2) Aspartate Amino Transferase (AST) 16 U/L (15-37) Alanine Aminotransferase (ALT) 26 U/L (16-63) Alkaline Phosphatase 75 U/L (46-116) Total Protein 7.4 g/dL (6.4-8.2) Albumin 4.3 g/dL (3.4-5.0) Urine Opiates Screen Pos (NEG) Urine Methadone Screen Neg (NEG) Urine Barbiturates Neg (NEG) Urine Phencyclidine Screen Neg (NEG) Urine Amphetamine/Methamphetamine Neg (NEG) Urine Benzodiazepines Screen Neg (NEG) Urine Cocaine Screen Neg (NEG) Urine Cannabinoids Screen Neg (NEG) Ethyl Alcohol Level < 10 mg/dL (0-10) Urine Ethyl Alcohol Neg (NEG) EKG EKG My interpretation of EKG shows a sinus rhythm at 91 bpm. No acute morphology[] Radiology/Procedures Radiology/Procedures [] Course & Med Decision Making Course & Med Decision Making Pertinent Labs and Imaging studies reviewed. (See chart for details) See [facility] - Report. Pt. to follow up at [facility]. Safe plan. Pt. to push fluids. Follow up urine test at primary. Return if any concerns. Push fruit drinks. [] Final Impression Final Impression 1. Suicidal ideation 2. Depression 3. Anxiety[] 4. Hematuria 5. Hypokalemia Dragon Disclaimer Dragon Disclaimer This electronic medical record was generated, in whole or in part, using a voice recognition dictation system. ABDIRIZAK VALDES MD Jun 01, 2018 01:19
[2018-06-01] MEDS ORDERED: IV RINGERS SOLUTION,LACTATED 1,000 ML IV SCH (01:33)
--- NOTE | 2018-06-01 01:58 | EKG ---
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
[2018-06-01 02:49] VITALS: BP 157/92
[2018-06-01 02:51] LABS: ALBUMIN 4.3 g/dL (3.4-5.0); CALCIUM 8.9 mg/dL (8.5-10.1); CREATININE 0.9 mg/dL (0.7-1.3); DIRECT BILIRUBIN 0.1 mg/dL (0.0-0.2); GFR 123.4; POTASSIUM 3.2 mmol/L (3.5-5.1); TOTAL BILIRUBIN 0.4 mg/dL (0.2-1.0); TOTAL PROTEIN 7.4 g/dL (6.4-8.2)
[2018-06-01 02:55] LABS: BACTERIA,URINE 0 /HPF (0-FEW); BILIRUBIN,URINE NEG (NEG); CLARITY,URINE CLOUDY; COLOR,URINE RED; GLUCOSE,URINE NEG (NEG); NITRITE,URINE NEG (NEG); RBC,URINE TNTC /HPF (0-2); SQUAMOUS EPITHELIAL CELL,UR OCC /LPF; UROBILINOGEN,URINE 0.2 mg/dL (0.2 mg/dL); WBC,URINE OCC /HPF (0-4)
[2018-06-01 02:56] LABS: BARBITURATES NEG (NEG); BENZODIAZEPINES NEG (NEG); CANNABINOIDS NEG (NEG); COCAINE NEG (NEG); METHADONE NEG (NEG); OPIATES POS (NEG); PHENCYCLIDINE NEG (NEG)
[2018-06-01 02:58] LABS: BASO % 1 % (0-3); EOS # 0.1 x10^3/uL (0.0-0.7); EOS % 2 % (0-3); HEMOGLOBIN 13.8 g/dL (13.0-17.5); LYMPH # 2.3 x10^3/uL (1.0-4.8); LYMPH % 33 % (24-48); MEAN CORPUSCULAR HEMOGLOBIN 29 pg (25-35); MEAN CORPUSCULAR HGB CONC 34 g/dL (31-37); MEAN CORPUSCULAR VOLUME 85 fL (79-100); MONO # 0.5 x10^3/uL (0.0-1.1); MONO % 8 % (0-9); NEUT % 57 % (31-73); PLATELET COUNT 237 x10^3/uL (140-400); RED BLOOD COUNT 4.73 x10^6/uL (4.30-5.70); RED CELL DISTRIBUTION WIDTH 12.6 % (11.5-14.5); WHITE BLOOD COUNT 7.1 x10^3/uL (4.0-11.0)
[2018-06-01 02:59] LABS: AMPHETAMINE/METHAMPHETAMINE NEG (NEG)
[2018-06-01] MEDS ORDERED: POTASSIUM CHLORIDE 20 MEQ/15 ML ORAL LIQUID. PEG ONE (04:30)
[2018-06-01] MEDS ORDERED: IBUPROFEN 600 MG TABLET. PO ONE (05:00)
== END 2018-06-01 05:44 | disposition home or self-care (01) ==
LOC: ER 01:17
DX: R45.851 Suicidal ideations (principal); F32.9 Major depressive disorder, single episode, unspecified; F41.9 Anxiety disorder, unspecified; R31.9 Hematuria, unspecified; E87.6 Hypokalemia; F17.210 Nicotine dependence, cigarettes, uncomplicated; Z98.890 Other specified postprocedural states; Z88.8 Allergy status to other drugs, medicaments and biological substances; Z91.013 Allergy to seafood
CPT/HCPCS: 36415; 80048; 80076; 80307; 81001; 84443; 85025; 93005; 99284; G0480; J7120

== ENCOUNTER 2018-12-02 20:59 | Emergency (ER) | payer OTHER ==
[~2018-12-02] VITALS: Ht 170.2 cm; Wt 64.0 kg
[2018-12-02 21:12] VITALS: BP 133/68
[2018-12-02] MEDS ORDERED: HYDR-3165 PO (21:26)
[2018-12-02] MEDS ORDERED: AMOX500C PO (21:26)
--- NOTE | 2018-12-02 21:27 | PHYS DOC ---
Past History Past Medical History: Kidney Stones Past Surgical History: Other Additional Past Surgical Histo: Recent Rt. Achilles tendon repair 05/23/18 Smoking: Cigarettes, Less than 1pk/day Additional Smoking Information: " I usually vape" Alcohol Use: None Drug Use: None Adult General Chief Complaint Chief Complaint: DENTAL PROBLEM HPI HPI Patient is a 28 year old male who presents with complaint of dental pain. Patient states that he cracked one of his right upper teeth in the past, however broke another part of it again tonight while eating a Pop Tart. States that he is having moderate to severe pain at this area. States that he plans on following with a dentist in the next 2 days. States he is concerned about his pain currently and feels that it will likely worsen as he has had this happen before in the past. Denies any other symptoms or injuries. States that the pain is localized to the affected tooth. Denies radiation of pain. States he took naproxen earlier this evening with no relief in symptoms. Review of Systems Review of Systems Constitutional: Denies fever or chills [] Eyes: Denies change in visual acuity, redness, or eye pain [] HENT: Dental pain[] Respiratory: Denies cough or shortness of breath [] Cardiovascular: Denies chest pain or edema[] GI: Denies abdominal pain, nausea, vomiting, bloody stools or diarrhea [] : Denies dysuria or hematuria [] Musculoskeletal: Denies back pain or joint pain [] Integument: Denies rash or skin lesions [] Neurologic: Denies headache, focal weakness or sensory changes [] All other systems were reviewed and found to be within normal limits, except as documented in this note. Allergies Allergies Allergies Coded Allergies Type Severity Reaction Last Updated Verified beeswax Allergy Intermediate sob 03/30/18 No fish derived Allergy Intermediate 03/30/18 Yes shellfish derived Allergy Intermediate 03/30/18 Yes Physical Exam Physical Exam Constitutional: Alert, afebrile, no acute distress. [] HENT: Normocephalic, atraumatic, bilateral external ears normal, oropharynx moist, tooth #5 with significant dental caries and fracture of crown to root, direct tenderness to palpation, no gingival swelling, erythema, or fluctuance noted, no oral exudates, nose normal. [] Eyes: PERRLA, EOMI, conjunctiva normal, no discharge. [] Neck: Normal range of motion, no tenderness, supple, no stridor. [] Cardiovascular:Heart rate regular rhythm, no murmur [] Lungs & Thorax: Bilateral breath sounds clear to auscultation [] Abdomen: Bowel sounds normal, soft, no tenderness, no masses, no pulsatile mas ses. [] Skin: Warm, dry, no erythema, no rash. [] Back: No tenderness, no CVA tenderness. [] Extremities: No tenderness, no cyanosis, no clubbing, ROM intact, no edema. [] Neurologic: Alert and oriented X 3, normal motor function, normal sensory function, no focal deficits noted. [] Current Patient Data Vital Signs Vital Signs Date Time Temp Pulse Resp B/P (MAP) Pulse Ox O2 Delivery O2 Flow Rate FiO2 12/02/18 21:12 98.9 87 16 97 Room Air Lab Results Not performed EKG EKG Not performed[] Radiology/Procedures Radiology/Procedures Not performed[] Course & Med Decision Making Course & Med Decision Making Pertinent Labs and Imaging studies reviewed. (See chart for details) Patient prescribed amoxicillin and [place]. Advised follow-up with dentist in the next 2 days for reevaluation. Advised return to emergency department for any worsening symptoms. Patient was understanding and in agreement with treatment plan.[] Dragon Disclaimer Dragon Disclaimer This electronic medical record was generated, in whole or in part, using a voice recognition dictation system. Departure Departure: Impression: Primary Impression: Pain, dental Disposition: HOME, SELF-CARE Condition: STABLE Referrals: VIMAL CONNER (PCP) Patient Instructions: Dental Pain Additional Instructions: Follow-up with her dentist in the next 2-3 days for reevaluation and return to the emergency department for any worsening symptoms. Scripts Hydrocodone Bit/Acetaminophen (NORCO 5-325 TABLET) 1 Each Tablet 1 TAB PO Q4HRS PRN for PAIN, #20 TAB Prov: AMA ARTEAGA MD 12/02/18 Amoxicillin (AMOXICILLIN) 500 Mg Capsule 1 CAP PO TID, #30 CAP Prov: AMA ARTEAGA MD 12/02/18 AMA ARTEAGA MD Dec 02, 2018 21:27
== END 2018-12-02 21:34 | disposition home or self-care (01) ==
LOC: ER 20:59
DX: S02.5XXA Fracture of tooth (traumatic), initial encounter for closed fracture (principal); K02.9 Dental caries, unspecified; F17.210 Nicotine dependence, cigarettes, uncomplicated; Z87.442 Personal history of urinary calculi; Z88.8 Allergy status to other drugs, medicaments and biological substances; Z91.013 Allergy to seafood; X58.XXXA Exposure to other specified factors, initial encounter; Y93.89 Activity, other specified; Y92.89 Other specified places as the place of occurrence of the external cause; Y99.8 Other external cause status
CPT/HCPCS: 99283

== ENCOUNTER 2019-03-09 18:29 | Emergency (ER) | payer SELFPAY ==
[~2019-03-09] VITALS: Ht 170.2 cm; Wt 71.0 kg
[~2019-03-09 18:29] MED LIST changes: +AMOX500C PO; +HYDR-3165 PO
--- NOTE | 2019-03-09 18:37 | ED.ADGEN ---
Past History Past Medical History: Kidney Stones Past Surgical History: Other Additional Past Surgical Histo: Recent Rt. Achilles tendon repair 05/23/18 Smoking: Cigarettes, Less than 1pk/day Alcohol Use: None Drug Use: None Adult General Chief Complaint Chief Complaint ".. I having some discomfort in my abdomen.. It not like a kidney stone.. I ve had that before.. It here on the Lt. .. and lower... " HPI HPI Patient is a 28 year old male who presents with above hx and complaints left lower abdomen discomfort. Patient denies any flank tenderness. Has had a previous history of kidney stones. No history of injury. No history of travel. No history of specific ill contacts. No history of penile discharge. No fears of STD. Patient denies any history immunosuppression. Has had normal stools. Review of Systems Review of Systems Constitutional: Denies fever or chills [] Eyes: Denies change in visual acuity, redness, or eye pain [] HENT: Denies nasal congestion or sore throat [] Respiratory: Denies cough or shortness of breath [] Cardiovascular: No additional information not addressed in HPI [] GI: complaints of Lt. abdomen discomfort or abdominal pain, nausea. Denies, vomiting, bloody stools or diarrhea [] : Denies dysuria or hematuria [] Musculoskeletal: Denies back pain or joint pain [] Integument: Denies rash or skin lesions [] Neurologic: Denies headache, focal weakness or sensory changes [] Endocrine: Denies polyuria or polydipsia [] All other systems were reviewed and found to be within normal limits, except as documented in this note. Family History Family History Noncontributory Current Medications Current Medications Current Medications Medications (Trade) Dose Ordered Sig/Eunice Start Time Stop Time Status Last Admin Dose Admin Lactated Ringer's 1,000 ml @ 1,000 mls/hr Q1H 03/09/19 19:13 03/09/19 20:12 DC 03/09/19 19:53 1,000 MLS/HR Levofloxacin (Levaquin) 500 mg 1X ONCE 03/09/19 22:30 03/09/19 22:12 DC 03/09/19 22:05 500 MG Magnesium Hydroxide (Milk Of Magnesia) 2,400 mg 1X ONCE 03/09/19 20:30 03/09/19 20:31 DC 03/09/19 20:21 2,400 MG Allergies Allergies Allergies Coded Allergies Type Severity Reaction Last Updated Verified beeswax Allergy Intermediate sob 03/30/18 No fish derived Allergy Intermediate 03/30/18 Yes shellfish derived Allergy Intermediate 03/30/18 Yes Physical Exam Physical Exam Constitutional: Well developed, well nourished, moderate acute distress, non- toxic appearance. [] HENT: Normocephalic, atraumatic, bilateral external ears normal, oropharynx moist, no oral exudates, nose normal. [] Eyes: PERRLA, EOMI, conjunctiva normal, no discharge. [] Neck: Normal range of motion, no tenderness, supple, no stridor. [] Cardiovascular:Heart rate regular rhythm, no murmur [] Lungs & Thorax: Bilateral breath sounds equal at apex auscultation [] Abdomen: Bowel sounds normal, soft, lower mid abdomen and left lower tenderness, no masses, no pulsatile masses. Declines rectal exam this time. Mild rebound to mid left abdomen Skin: Warm, dry, no erythema, no rash. [] Back: No tenderness, no CVA tenderness. [] Extremities: No tenderness, no cyanosis, no clubbing, ROM intact, no edema. [] Neurologic: Alert and oriented X 3, normal motor function, normal sensory function, no focal deficits noted. [] Psychologic: Affect anxious, judgement normal, mood normal. [] Current Patient Data Vital Signs Vital Signs Date Time Temp Pulse Resp B/P (MAP) Pulse Ox O2 Delivery O2 Flow Rate FiO2 03/09/19 22:05 66 18 142/89 (106) 99 Room Air 03/09/19 18:29 98.5 Lab Results Laboratory Tests Test 03/09/19 18:52 03/09/19 19:00 Urine Collection Type Unknown Urine Color Do Urine Clarity Cloudy Urine pH 6.0 Urine Specific [place] >=1.030 Urine Protein 100 mg/dl (NEG-TRACE) Urine Glucose (UA) Neg mg/dL (NEG) Urine Ketones (Stick) Neg mg/dL (NEG) Urine Blood Large (NEG) Urine Nitrite Neg (NEG) Urine Bilirubin Neg (NEG) Urine Urobilinogen Dipstick 1 mg/dL (0.2 mg/dL) Urine Leukocyte Esterase Neg (NEG) Urine RBC Tntc /HPF (0-2) Urine WBC Occ /HPF (0-4) Urine Squamous Epithelial Cells None /LPF Urine Bacteria Few /HPF (0-FEW) Urine Mucus Slight /LPF Urine Opiates Screen Pos (NEG) Urine Methadone Screen Neg (NEG) Urine Barbiturates Neg (NEG) Urine Phencyclidine Screen Neg (NEG) Urine Amphetamine/Methamphetamine Neg (NEG) Urine Benzodiazepines Screen Neg (NEG) Urine Cocaine Screen Neg (NEG) Urine Cannabinoids Screen Neg (NEG) Urine Ethyl Alcohol Neg (NEG) White Blood Count 6.9 x10^3/uL (4.0-11.0) Red Blood Count 4.92 x10^6/uL (4.30-5.70) Hemoglobin 14.3 g/dL (13.0-17.5) Hematocrit 43.1 % (39.0-53.0) Mean Corpuscular Volume 88 fL (79-100) Mean Corpuscular Hemoglobin 29 pg (25-35) Mean Corpuscular Hemoglobin Concent 33 g/dL (31-37) Red Cell Distribution Width 12.9 % (11.5-14.5) Platelet Count 265 x10^3/uL (140-400) Neutrophils (%) (Auto) 45 % (31-73) Lymphocytes (%) (Auto) 45 % (24-48) Monocytes (%) (Auto) 7 % (0-9) Eosinophils (%) (Auto) 2 % (0-3) Basophils (%) (Auto) 1 % (0-3) Neutrophils # (Auto) 3.1 x10^3uL (1.8-7.7) Lymphocytes # (Auto) 3.1 x10^3/uL (1.0-4.8) Monocytes # (Auto) 0.5 x10^3/uL (0.0-1.1) Eosinophils # (Auto) 0.1 x10^3/uL (0.0-0.7) Basophils # (Auto) 0.1 x10^3/uL (0.0-0.2) Sodium Level 144 mmol/L (136-145) Potassium Level 3.3 mmol/L (3.5-5.1) L Chloride Level 105 mmol/L (98-107) Carbon Dioxide Level 27 mmol/L (21-32) Anion Gap 12 (6-14) Blood Urea Nitrogen 12 mg/dL (8-26) Creatinine 0.9 mg/dL (0.7-1.3) Estimated GFR (Cockcroft-Gault) 123.4 Glucose Level 87 mg/dL (70-99) Calcium Level 8.8 mg/dL (8.5-10.1) Total Bilirubin 0.5 mg/dL (0.2-1.0) Direct Bilirubin 0.1 mg/dL (0.0-0.2) Aspartate Amino Transferase (AST) 18 U/L (15-37) Alanine Aminotransferase (ALT) 19 U/L (16-63) Alkaline Phosphatase 86 U/L (46-116) Total Protein 7.9 g/dL (6.4-8.2) Albumin 4.7 g/dL (3.4-5.0) Amylase Level 67 U/L (25-115) Lipase 171 U/L (73-393) EKG EKG [] Radiology/Procedures Radiology/Procedures Rotation of acute abdomen film shows nonspecific bowel gas pattern. There is some increased stool . [][place] [address] IMAGING REPORT Signed PATIENT: MELISSA FREEMAN ACCOUNT: [id number] : 1990 LOCATION: ER AGE: 28 SEX: M EXAM STATUS: REG ER ORD. PHYSICIAN: ABDIRIZAK VALDES MD REASON: discomfort, hematuria PROCEDURE: CT ABDOMEN PELVIS WO CONTRAST Examination: CT ABDOMEN PELVIS WO CONTRAST History: Discomfort, hematuria Comparison/Correlation: 04/12/2014 CT abdomen pelvis without contrast Findings: Axial images of the abdomen and pelvis were obtained without contrast. Sagittal and coronal reformatted images provided. Visualized lung bases are clear. Unenhanced liver, spleen, pancreas, and adrenal glands are normal. Gallbladder fossa is unremarkable. There are 2 punctate calculi. Present at the right renal inferior pole calyces. Slightly high density of medullary pyramids is noted greater on the right noted. No hydronephrosis or collecting system obstruction. Urinary bladder is mostly decompressed and unremarkable. Appendix is normal. Moderate quantity of stool in the colon noted. No bowel obstruction. No extraluminal gas. Bony structures are unremarkable. Impression: Nonobstructive right renal calyceal calculi. Early medullary nephrocalcinosis. Findings are similar upon correlation with 04/12/2014 CT of the kidneys without contrast exam. No collecting system obstruction. If mass lesion is a persistent concern, consider CT of the kidneys. IVP urogram protocol with contrast on a nonemergent basis. PQRS Compliance Statement: One or more of the following individualized dose reduction techniques were utilized for this examination: 1. Automated exposure control 2. Adjustment of the mA and/or kV according to patient size 3. Use of iterative reconstruction technique Electronically signed by: Mitch Smith MD (03/09/2019 9:30 PM) [facility] DICTATED AND SIGNED BY: MITCH SMITH MD DATE: 03/09/192129 CC: ABDIRIZAK VALDES MD; [facility]IM[facility] CONNER ~ Course & Med Decision Making Course & Med Decision Making Pertinent Labs and Imaging studies reviewed. (See chart for details) Push fluids and vitamin C drinks. Recommend patient follow-up primary. Patient declines CT with contrast to evaluate abdomen further. No findings of hydronephrosis or symptoms started with renal stone passage. Will start patient on Levaquin. Recommend patient follow- up urology. Recommend patient to get CT with contrast if persistent symptoms. [] Final Impression Final Impression 1. Hematuria 2. Abdomen discomfort[] Dragon Disclaimer Dragon Disclaimer This electronic medical record was generated, in whole or in part, using a voice recognition dictation system. Dragon Disclaimer This chart was dictated in whole or in part using Voice Recognition software in a busy, high-work load, and often noisy Emergency Department environment. It may contain unintended and wholly unrecognized errors or omissions. ABDIRIZAK VALDES MD Mar 09, 2019 18:37
[2019-03-09] MEDS ORDERED: IV RINGERS SOLUTION,LACTATED 1,000 ML IV SCH (19:13)
[2019-03-09 19:24] LABS: BARBITURATES NEG (NEG); BENZODIAZEPINES NEG (NEG); CANNABINOIDS NEG (NEG); COCAINE NEG (NEG); METHADONE NEG (NEG); OPIATES POS (NEG); PHENCYCLIDINE NEG (NEG)
[2019-03-09 19:30] LABS: BASO # 0.1 x10^3/uL (0.0-0.2); BASO % 1 % (0-3); EOS # 0.1 x10^3/uL (0.0-0.7); EOS % 2 % (0-3); HEMATOCRIT 43.1 % (39.0-53.0); HEMOGLOBIN 14.3 g/dL (13.0-17.5); LYMPH # 3.1 x10^3/uL (1.0-4.8); LYMPH % 45 % (24-48); MEAN CORPUSCULAR HEMOGLOBIN 29 pg (25-35); MEAN CORPUSCULAR HGB CONC 33 g/dL (31-37); MEAN CORPUSCULAR VOLUME 88 fL (79-100); MONO # 0.5 x10^3/uL (0.0-1.1); MONO % 7 % (0-9); NEUT # 3.1 x10^3uL (1.8-7.7); NEUT % 45 % (31-73); PLATELET COUNT 265 x10^3/uL (140-400); RED BLOOD COUNT 4.92 x10^6/uL (4.30-5.70); RED CELL DISTRIBUTION WIDTH 12.9 % (11.5-14.5); WHITE BLOOD COUNT 6.9 x10^3/uL (4.0-11.0)
[2019-03-09 19:31] LABS: BACTERIA,URINE FEW /HPF (0-FEW); BILIRUBIN,URINE NEG (NEG); CLARITY,URINE CLOUDY; COLOR,URINE AMBER; GLUCOSE,URINE NEG (NEG); NITRITE,URINE NEG (NEG); RBC,URINE TNTC /HPF (0-2); UROBILINOGEN,URINE 1 mg/dL (0.2 mg/dL); WBC,URINE OCC /HPF (0-4)
[2019-03-09 19:37] LABS: ALBUMIN 4.7 g/dL (3.4-5.0); CALCIUM 8.8 mg/dL (8.5-10.1); CREATININE 0.9 mg/dL (0.7-1.3); DIRECT BILIRUBIN 0.1 mg/dL (0.0-0.2); GFR 123.4; POTASSIUM 3.3 mmol/L (3.5-5.1); TOTAL BILIRUBIN 0.5 mg/dL (0.2-1.0); TOTAL PROTEIN 7.9 g/dL (6.4-8.2)
[2019-03-09 19:41] LABS: AMPHETAMINE/METHAMPHETAMINE NEG (NEG)
[2019-03-09] MEDS ORDERED: MAGNESIUM HYDROXIDE 2,400 MG/30 ML ORAL.SUSP. PO ONE (20:30)
--- NOTE | 2019-03-09 21:33 | RAD ---
Examination: CT ABDOMEN PELVIS WO CONTRAST History: Discomfort, hematuria Comparison/Correlation: 04/12/2014 CT abdomen pelvis without contrast Findings: Axial images of the abdomen and pelvis were obtained without contrast. Sagittal and coronal reformatted images provided. Visualized lung bases are clear. Unenhanced liver, spleen, pancreas, and adrenal glands are normal. Gallbladder fossa is unremarkable. There are 2 punctate calculi. Present at the right renal inferior pole calyces. Slightly high density of medullary pyramids is noted greater on the right noted. No hydronephrosis or collecting system obstruction. Urinary bladder is mostly decompressed and unremarkable. Appendix is normal. Moderate quantity of stool in the colon noted. No bowel obstruction. No extraluminal gas. Bony structures are unremarkable. Impression: Nonobstructive right renal calyceal calculi. Early medullary nephrocalcinosis. Findings are similar upon correlation with 04/12/2014 CT of the kidneys without contrast exam. No collecting system obstruction. If mass lesion is a persistent concern, consider CT of the kidneys. IVP urogram protocol with contrast on a nonemergent basis. PQRS Compliance Statement: One or more of the following individualized dose reduction techniques were utilized for this examination: 1. Automated exposure control 2. Adjustment of the mA and/or kV according to patient size 3. Use of iterative reconstruction technique Electronically signed by: Mitch Messina MD (03/09/2019 9:30 PM) [facility]
[2019-03-09] MEDS ORDERED: LEVO500T59 PO (21:57)
[2019-03-09 22:05] VITALS: BP 142/89
[2019-03-09] MEDS ORDERED: levoFLOXacin 500 MG TABLET PO ONE (22:30)
--- NOTE | 2019-03-10 07:59 | RAD ---
Acute abdominal series 03/09/2019 INDICATION: History of kidney stones. Abdominal pain. COMPARISON STUDY: Abdominal series April 12, 2014 FINDINGS: No pneumothorax or pleural effusion is seen. Heart size is normal. Lungs are clear. Bony thorax is grossly intact. No gross pneumoperitoneum is identified. The bowel gas pattern is nonobstructive. No acute osseous abnormalities are identified. Probable pelvic phleboliths are seen. No definitive nephrolithiasis or ureteral stone is identified radiographically. IMPRESSION: No radiographic evidence of acute cardiopulmonary or intra-abdominal abnormality Electronically signed by: Rm Garibay MD (03/10/2019 7:56 AM) [facility]
== END 2019-03-09 22:05 | disposition home or self-care (01) ==
LOC: ER 18:29
DX: R10.32 Left lower quadrant pain (principal); R31.9 Hematuria, unspecified; F17.210 Nicotine dependence, cigarettes, uncomplicated; Z87.442 Personal history of urinary calculi; Z91.013 Allergy to seafood; Z91.048 Other nonmedicinal substance allergy status
CPT/HCPCS: 36415; 74022; 74176; 80048; 80076; 80307; 81001; 82150; 83690; 85025; 99285; J7120

== ENCOUNTER 2019-06-02 12:24 | Emergency (ER) | payer SELFPAY ==
[~2019-06-02] VITALS: Ht 170.2 cm; Wt 64.4 kg
[~2019-06-02 12:24] MED LIST changes: +LEVO500T59 PO
[2019-06-02 12:30] VITALS: BP 131/75
[2019-06-02] MEDS ORDERED: AMOX1TAB61 PO (12:43)
--- NOTE | 2019-06-02 12:43 | PHYS DOC ---
Past History Past Medical History: Kidney Stones Past Surgical History: Other Additional Past Surgical Histo: Recent Rt. Achilles tendon repair 05/23/18 Smoking: Cigarettes, Less than 1pk/day Alcohol Use: None Drug Use: None Adult General Chief Complaint Chief Complaint: COUGH HPI HPI Patient is a 29-year-old male who presents with complaint of cough, sinus congestion and purulent nasal drainage and sinus pain for the last couple of weeks. Patient states that he had a fever last night but no fever today. He denies any chest pain or shortness of breath. He states that symptoms get worse at night.[] Review of Systems Review of Systems Constitutional: Positive fever and chills [] HENT: Positive sinus congestion and sore throat [] Respiratory: As of cough without shortness of breath [] Cardiovascular: No additional information not addressed in HPI [] GI: Denies abdominal pain, nausea, vomiting, bloody stools or diarrhea [] Integument: Denies rash or skin lesions [] Allergies Allergies Allergies Coded Allergies Type Severity Reaction Last Updated Verified beeswax Allergy Intermediate sob 03/30/18 No fish derived Allergy Intermediate 03/30/18 Yes shellfish derived Allergy Intermediate 03/30/18 Yes Physical Exam Physical Exam Constitutional: Well developed, well nourished, no acute distress, non-toxic appearance. [] HENT: Normocephalic, atraumatic, frontal and maxillary sinuses tenderness is noted bilaterally. [] Eyes: PERRLA, EOMI, conjunctiva normal, no discharge. [] Neck: Normal range of motion, no tenderness, supple, no stridor. [] Cardiovascular:Heart rate regular rhythm, no murmur [] Lungs & Thorax: Bilateral breath sounds clear to auscultation [] EKG EKG [] Radiology/Procedures Radiology/Procedures [] Course & Med Decision Making Course & Med Decision Making Pertinent Labs and Imaging studies reviewed. (See chart for details) [] Dragon Disclaimer Dragon Disclaimer This electronic medical record was generated, in whole or in part, using a voice recognition dictation system. Departure Departure: Impression: Primary Impression: Acute sinusitis Disposition: 01 HOME, SELF-CARE Condition: STABLE Referrals: VIMAL CONNER (PCP) Patient Instructions: Sinusitis Scripts Amoxicillin/Potassium Clav (AUGMENTIN 875-125 TABLET) 1 Each Tablet 1 TAB PO BID for infection for 10 Days, #20 TAB 0 Refills Prov: ANISHA GIRON Jr. DO 06/02/19 Problem Qualifiers Primary Impression: Acute sinusitis Sinusitis location: unspecified location Recurrence: not specified as recurrent Qualified Codes: J01.90 - Acute sinusitis, unspecified ANISHA GIRON Jr. DO Jun 02, 2019 12:43
== END 2019-06-02 12:51 | disposition home or self-care (01) ==
LOC: ER 12:24
DX: J01.90 Acute sinusitis, unspecified (principal); Z87.442 Personal history of urinary calculi; F17.210 Nicotine dependence, cigarettes, uncomplicated; Z88.8 Allergy status to other drugs, medicaments and biological substances; Z91.013 Allergy to seafood
CPT/HCPCS: 99283

== ENCOUNTER 2020-01-02 04:33 | Emergency (ER) | payer SELFPAY ==
[~2020-01-02] VITALS: Ht 170.2 cm; Wt 71.0 kg
--- NOTE | 2020-01-02 04:45 | PHYS DOC ---
Past History Past Medical History: Asthma, Kidney Stones (ABDIRIZAK VALDES MD) Past Surgical History: Other Additional Past Surgical Histo: Recent Rt. Achilles tendon repair 05/23/18 (ABDIRIZAK VALDES MD) Smoking: Cigarettes, Less than 1pk/day Alcohol Use: None Drug Use: Cocaine (ABDIRIZAK VALDES MD) General Adult HPI: HPI: ".. I started getting chest pain.. here in the center of my chest... it started about 20 min. ago.... " Did do some coke earlier... " " I usually follow at [facility].... but I have been here a lot for dental pain stuff..." Patient is a 29 year old male who presents with above hx and complaints of central chest pain. Pain is described as sharp and some mild localized to upper sternum area. No history of trauma. No history of previous heart attacks or myocardial infarction. Does admit to using cocaine earlier tonight. Patient is does have a history of polysubstance abuse with primarily narcotics abuse. Patient has been on Suboxone for treatment of his narcotic addiction. Patient has followed the [facility] for his and with [facility] for care.. Pt has presented here multiple times reference pain complaints and dental issues. Pain is describe as persistent for the last 20 to 30 minutes. Use of breath seemed to exacerbate the central chest pain. No radiation. Patient denies previous [place]. Does smoke tobacco. (ABDIRIZAK VALDES MD) Review of Systems: Review of Systems: Constitutional: Denies fever or chills Eyes: Denies change in visual acuity HENT: Denies nasal congestion or sore throat Respiratory: Denies cough or shortness of breath Cardiovascular: complaints of central chest pain . Denies edema GI: Denies abdominal pain, nausea, vomiting, bloody stools or diarrhea : Denies dysuria Musculoskeletal: Denies back pain or joint pain Integument: Denies rash Neurologic: Denies headache, focal weakness or sensory changes Endocrine: Denies polyuria or polydipsia Lymphatic: Denies swollen glands Psychiatric: Denies depression or anxiety (ABDIRIZAK VALDES MD) Heart Score: HEART Score for Chest Pain: HEART Score for Chest Pain Response (Comments) Value History Slighlty/Non-Suspicious 0 ECG Normal 0 Age < 45 0 Risk Factors 1 or 2 Risk Factors 1 Troponin < Normal Limit 0 Total 1 Risk Factors: Risk Factors: DM, Current or recent (<one month) smoker, HTN, HLP, family history of CAD, obesity. Risk Scores: Score 0 - 3: 2.5% MACE over next 6 weeks - Discharge Home Score 4 - 6: 20.3% MACE over next 6 weeks - Admit for Clinical Observation Score 7 - 10: 72.7% MACE over next 6 weeks - Early Invasive Strategies (ABDIRIZAK VALDES MD) Family History: Family History: Noncontributory (ABDIRIZAK VALDES MD) Current Medications: Current Meds: See Nursing for home meds. (ABDIRIZAK VALDES MD) Allergies: Allergies: Allergies Coded Allergies Type Severity Reaction Last Updated Verified beeswax Allergy Intermediate sob 03/30/18 No fish derived Allergy Intermediate 03/30/18 Yes shellfish derived Allergy Intermediate 03/30/18 Yes (ABDIRIZAK VALDES MD) Physical Exam: PE: Constitutional: moderate acute distress, non-toxic appearance. [] HENT: Normocephalic, atraumatic, bilateral external ears normal, oropharynx moist, no oral exudates, nose injected turbinates Eyes: PERRLA, EOMI, conjunctiva normal, no discharge. [] Neck: Normal range of motion, no tenderness, supple, no stridor. [] Cardiovascular:Heart rate regular rhythm, no murmur [] Lungs & Thorax: Bilateral breath sounds equal at apex with few scattered wheezes auscultation [] Abdomen: Bowel sounds normal, soft, no tenderness, no masses, no pulsatile masses. [] Skin: Warm, dry, no erythema, no rash. [] Back: No tenderness, no CVA tenderness. [] Extremities: No tenderness, no cyanosis, no clubbing, ROM intact, no edema. Scar Rt. achillies area. Neurologic: Alert and oriented X 3, normal motor function, normal sensory function, no focal deficits noted. [] Psychologic: Affect anxious,, judgement normal, mood depressed] (ABDIRIZAK VALDES MD) EKG: EKG: My interpretation EKG shows a sinus rhythm at 83 bpm. No findings of acute STEMI or contralateral changes. [] (ABDIRIZAK VALDES MD) Radiology/Procedures: Radiology/Procedures: [][address] [address] IMAGING REPORT Signed PATIENT: MELISSA FREEMAN ACCOUNT: [id number] : 1990 LOCATION: ER AGE: 29 SEX: M EXAM STATUS: PRE ER ORD. PHYSICIAN: ABDIRIZAK VALDES MD REASON: Chest pain PROCEDURE: PORTABLE CHEST 1V PORTABLE CHEST 1V INDICATION: Chest pain COMPARISON STUDY: 10/08/2016. FINDINGS: Lungs: Normal lung volume. No pulmonary mass or consolidation. The tracheobronchial tree and hilar structures are normal. Pleura: No pleural effusion or pneumothorax. Heart and Mediastinum: The cardiomediastinal silhouette is normal. The great vessels of the thorax are normal. IMPRESSION: No acute cardiopulmonary process. Electronically signed by: Alexia Whitaker MD (01/02/2020 5:24 AM) [facility] DICTATED AND SIGNED BY: ALEXIA WHITAKER MD DATE: 01/02/20523 CC: ABDIRIZAK VALDES MD; [facility] CONNER ~ (ABDIRIZAK VALDES MD) Course & Med Decision Making: Course & Med Decision Making Pertinent Labs and Imaging studies reviewed. (See chart for details) Pt. checked out to Dr. Murray at shift change. Labs and rays pending. He will make disposition. Impression: 1. Chest Pain 2. Hx. of Polysubstance Abuse 3. Hypomagnesium 4. Tobacco Use [] (ABDIRIZAK VALDES MD) Course & Med Decision Making Patient is a 29-year-old man who was evaluated in ER due to chest pain, his lab work come back normal, EKG was normal as well. Patient wanted to go home. Patient denies any chest pain at this time (DEBBI MURRAY DO) Michelle Disclaimer: Michelle Disclaimer: This electronic medical record was generated, in whole or in part, using a voice recognition dictation system. (ABDIRIZAK VALDES MD) Departure Departure: Impression: Primary Impression: Chest pain Additional Impression: Substance abuse Disposition: HOME/RESIDENCE PRIOR TO ADM Condition: STABLE Referrals: VIMAL CONNER (PCP) please follow up with your family doctor on Saturday. Patient Instructions: Chest Pain (Nonspecific), Substance Abuse-Brief Additional Instructions: Thank you for visiting our Emergency Department. We appreciate you trusting us with your care. If any additional problems come up don't hesitate to return to visit us. Please follow up with your primary care provider so they can plan additional care if needed and know about the problem that you had. If symptoms worsen come back to the Emergency Department. Any concerning symptoms that start such as chest pain, shortness of air, weakness or numbness on one side of the body, running high fevers or any other concerning symptoms return to the ER. Justification of Admission: Justification of Admission: Justification of Admission Dx: N/A (ABDIRIZAK VALDES MD) Justification of Admission Dx: N/A (DEBBI MURRAY DO) Dragon Disclaimer This chart was dictated in whole or in part using Voice Recognition software in a busy, high-work load, and often noisy Emergency Department environment. It ma y contain unintended and wholly unrecognized errors or omissions. (ABDIRIZAK VALDES MD) ABDIRIZAK VALDES MD Jan 02, 2020 04:45 DEBBI MURRAY DO Jan 02, 2020 06:40
[2020-01-02] MEDS ORDERED: IV RINGERS SOLUTION,LACTATED 1,000 ML IV SCH (04:48)
[2020-01-02] MEDS ORDERED: ASPIRIN CHEWABLE 81 MG TABLET. PO ONE (05:00)
--- NOTE | 2020-01-02 05:27 | RAD ---
PORTABLE CHEST 1V INDICATION: Chest pain COMPARISON STUDY: 10/08/2016. FINDINGS: Lungs: Normal lung volume. No pulmonary mass or consolidation. The tracheobronchial tree and hilar structures are normal. Pleura: No pleural effusion or pneumothorax. Heart and Mediastinum: The cardiomediastinal silhouette is normal. The great vessels of the thorax are normal. IMPRESSION: No acute cardiopulmonary process. Electronically signed by: Kyle Whitaker MD (01/02/2020 5:24 AM) [facility]
[2020-01-02 05:38] LABS: CALCIUM 9.3 mg/dL (8.5-10.1); CREATININE 0.9 mg/dL (0.7-1.3); GFR 122.5; POTASSIUM 3.6 mmol/L (3.5-5.1)
[2020-01-02 05:47] LABS: BASO % 1 % (0-3); EOS # 0.1 x10^3/uL (0.0-0.7); EOS % 2 % (0-3); HEMATOCRIT 42.3 % (39.0-53.0); HEMOGLOBIN 14.1 g/dL (13.0-17.5); LYMPH # 2.5 x10^3/uL (1.0-4.8); LYMPH % 33 % (24-48); MEAN CORPUSCULAR HEMOGLOBIN 29 pg (25-35); MEAN CORPUSCULAR HGB CONC 33 g/dL (31-37); MEAN CORPUSCULAR VOLUME 87 fL (79-100); MONO # 0.5 x10^3/uL (0.0-1.1); MONO % 7 % (0-9); NEUT # 4.3 x10^3uL (1.8-7.7); NEUT % 57 % (31-73); PLATELET COUNT 248 x10^3/uL (140-400); RED CELL DISTRIBUTION WIDTH 13.1 % (11.5-14.5); WHITE BLOOD COUNT 7.6 x10^3/uL (4.0-11.0)
[2020-01-02 05:50] LABS: ALBUMIN 4.5 g/dL (3.4-5.0); DIRECT BILIRUBIN 0.1 mg/dL (0.0-0.2); MAGNESIUM 1.7 mg/dL (1.8-2.4); TOTAL BILIRUBIN 0.4 mg/dL (0.2-1.0); TOTAL PROTEIN 7.5 g/dL (6.4-8.2)
--- NOTE | 2020-01-02 06:01 | EKG ---
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
[2020-01-02 06:35] VITALS: BP 101/68
[2020-01-02 11:01] LABS: THYROID STIM HORMONE (TSH) 2.042 uIU/mL (0.358-3.740)
== END 2020-01-02 06:45 | disposition home or self-care (01) ==
LOC: ER 04:33
DX: R07.2 Precordial pain (principal); E83.42 Hypomagnesemia; F19.10 Other psychoactive substance abuse, uncomplicated; J45.909 Unspecified asthma, uncomplicated; F17.210 Nicotine dependence, cigarettes, uncomplicated; F14.10 Cocaine abuse, uncomplicated; Z87.442 Personal history of urinary calculi; Z88.8 Allergy status to other drugs, medicaments and biological substances; Z91.013 Allergy to seafood
CPT/HCPCS: 36415; 71045; 80048; 80061; 80076; 82550; 83735; 83880; 84443; 84484; 85025; 85610; 85730; 93005; 99285; G0480; J7120

== ENCOUNTER 2020-01-29 15:46 | Emergency (ER) | payer SELFPAY ==
[~2020-01-29] VITALS: Ht 170.2 cm; Wt 71.0 kg
--- NOTE | 2020-01-29 16:14 | EKG ---
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
[2020-01-29 16:27] VITALS: BP 132/81
[2020-01-29] MEDS ORDERED: hydrOXYzine HCL 25 MG TABLET PO PRN (16:30)
--- NOTE | 2020-01-29 16:37 | RAD ---
CHEST PA LATERAL History: Chest pain Comparison: December 03, 2019 Findings: 2 views of the chest are submitted. There is no infiltrate, pneumothorax, or effusion. Pericardial cardiac silhouette is within normal limits in size. Impression: 1. There is no radiographic evidence of acute cardiopulmonary disease. Electronically signed by: Kyle Pelletier MD (01/29/2020 4:34 PM) [id number]
[2020-01-29 16:48] LABS: BARBITURATES NEG (NEG); BENZODIAZEPINES NEG (NEG); CANNABINOIDS NEG (NEG); COCAINE POS (NEG); METHADONE NEG (NEG); OPIATES NEG (NEG); PHENCYCLIDINE NEG (NEG)
[2020-01-29 16:50] LABS: AMPHETAMINE/METHAMPHETAMINE NEG (NEG)
--- NOTE | 2020-01-29 17:20 | PHYS DOC ---
Past History Past Medical History: Anxiety, Asthma, Depression Additional Past Medical Histor: addicted to prescription narcotics Past Surgical History: Other Additional Past Surgical Histo: Rt. Achilles tendon repair 05/23/18; wisdom teeth and 3 teeth extracted Smoking: Cigarettes, Less than 1pk/day Alcohol Use: None Drug Use: Cocaine Adult General Chief Complaint Chief Complaint: CHEST PAIN HPI HPI Patient is a [age] year old [sex] who presents with [] Review of Systems Review of Systems Constitutional: Denies fever or chills [] Eyes: Denies change in visual acuity, redness, or eye pain [] HENT: Denies nasal congestion or sore throat [] Respiratory: Denies cough or shortness of breath [] Cardiovascular: No additional information not addressed in HPI [] GI: Denies abdominal pain, nausea, vomiting, bloody stools or diarrhea [] : Denies dysuria or hematuria [] Musculoskeletal: Denies back pain or joint pain [] Integument: Denies rash or skin lesions [] Neurologic: Denies headache, focal weakness or sensory changes [] Endocrine: Denies polyuria or polydipsia [] All other systems were reviewed and found to be within normal limits, except as documented in this note. Current Medications Current Medications Current Medications Medications (Trade) Dose Ordered Sig/Eunice Start Time Stop Time Status Last Admin Dose Admin Hydroxyzine HCl (Atarax) 25 mg 1X PRN 01/29/20 16:30 Allergies Allergies Allergies Coded Allergies Type Severity Reaction Last Updated Verified beeswax Allergy Intermediate sob 01/02/20 No fish derived Allergy Intermediate 01/02/20 Yes shellfish derived Allergy Intermediate 01/02/20 Yes Physical Exam Physical Exam Constitutional: Well developed, well nourished, no acute distress, non-toxic appearance. [] HENT: Normocephalic, atraumatic, bilateral external ears normal, oropharynx moist, no oral exudates, nose normal. [] Eyes: PERRLA, EOMI, conjunctiva normal, no discharge. [] Neck: Normal range of motion, no tenderness, supple, no stridor. [] Cardiovascular:Heart rate regular rhythm, no murmur [] Lungs & Thorax: Bilateral breath sounds clear to auscultation [] Abdomen: Bowel sounds normal, soft, no tenderness, no masses, no pulsatile masses. [] Skin: Warm, dry, no erythema, no rash. [] Back: No tenderness, no CVA tenderness. [] Extremities: No tenderness, no cyanosis, no clubbing, ROM intact, no edema. [] Neurologic: Alert and oriented X 3, normal motor function, normal sensory function, no focal deficits noted. [] Psychologic: Affect normal, judgement normal, mood normal. [] Current Patient Data Vital Signs Vital Signs Date Time Temp Pulse Resp B/P (MAP) Pulse Ox O2 Delivery O2 Flow Rate FiO2 01/29/20 16:27 99 18 132/81 (98) 99 Lab Results Laboratory Tests Test 01/29/20 16:30 Urine Opiates Screen Neg (NEG) Urine Methadone Screen Neg (NEG) Urine Barbiturates Neg (NEG) Urine Phencyclidine Screen Neg (NEG) Urine Amphetamine/Methamphetamine Neg (NEG) Urine Benzodiazepines Screen Neg (NEG) Urine Cocaine Screen Pos (NEG) Urine Cannabinoids Screen Neg (NEG) Urine Ethyl Alcohol Neg (NEG) EKG EKG [] Radiology/Procedures Radiology/Procedures [] Course & Med Decision Making Course & Med Decision Making Pertinent Labs and Imaging studies reviewed. (See chart for details) [] Dragon Disclaimer Dragon Disclaimer This electronic medical record was generated, in whole or in part, using a voice recognition dictation system. Departure Departure: Impression: Primary Impression: Chest pain Disposition: 01 HOME/RESIDENCE PRIOR TO ADM Condition: STABLE Referrals: VIMAL CONNER (PCP) Patient Instructions: Chest Pain (Nonspecific) Justification of Admission: Justification of Admission: Justification of Admission Dx: N/A RIN GARRETT MD Jan 29, 2020 17:20
== END 2020-01-29 17:54 | disposition home or self-care (01) ==
LOC: ER 15:46
DX: R07.2 Precordial pain (principal); F41.9 Anxiety disorder, unspecified; J45.909 Unspecified asthma, uncomplicated; F32.9 Major depressive disorder, single episode, unspecified; F17.210 Nicotine dependence, cigarettes, uncomplicated; Z91.013 Allergy to seafood; Z88.8 Allergy status to other drugs, medicaments and biological substances
CPT/HCPCS: 36415; 71046; 80307; 93005; 99285

== ENCOUNTER 2020-02-24 20:17 | Emergency (ER) | payer SELFPAY ==
[~2020-02-24] VITALS: Ht 170.2 cm; Wt 71.0 kg
[2020-02-24 20:34] VITALS: BP 129/74
[2020-02-24] MEDS ORDERED: IV NORMAL SALINE 1,000ML 1,000 ML IV ONE (20:45)
[2020-02-24] MEDS ORDERED: hydrOXYzine HCL 25 MG TABLET PO STA (20:57)
[2020-02-24] MEDS ORDERED: ALBUTEROL SULFATE 2.5 MG/3 ML NEBU. NEB ONE (21:00)
[2020-02-24 21:06] LABS: BASO % 1 % (0-3); EOS # 0.1 x10^3/uL (0.0-0.7); EOS % 1 % (0-3); HEMATOCRIT 41.6 % (39.0-53.0); HEMOGLOBIN 13.8 g/dL (13.0-17.5); LYMPH # 1.6 x10^3/uL (1.0-4.8); LYMPH % 27 % (24-48); MEAN CORPUSCULAR HEMOGLOBIN 29 pg (25-35); MEAN CORPUSCULAR HGB CONC 33 g/dL (31-37); MEAN CORPUSCULAR VOLUME 87 fL (79-100); MONO # 0.4 x10^3/uL (0.0-1.1); MONO % 7 % (0-9); NEUT # 3.9 x10^3uL (1.8-7.7); NEUT % 65 % (31-73); PLATELET COUNT 260 x10^3/uL (140-400); RED BLOOD COUNT 4.79 x10^6/uL (4.30-5.70); WHITE BLOOD COUNT 6.1 x10^3/uL (4.0-11.0)
--- NOTE | 2020-02-24 21:06 | PHYS DOC ---
Past History Past Medical History: Anxiety, Asthma, Depression Additional Past Medical Histor: addicted to prescription narcotics Past Surgical History: Other Additional Past Surgical Histo: Rt. Achilles tendon repair 05/23/18; wisdom teeth and 3 teeth extracted Smoking: Cigarettes, Less than 1pk/day Alcohol Use: None Drug Use: Cocaine General Adult EDM: Chief Complaint: DIZZY/LIGHT HEADED HPI: HPI: 29-year-old male presents with dizziness. Patient states that he sat down after playing some basketball and started to feel dizzy. He also has had some shortness of breath. He has diagnosed asthma, but does not take any breathing treatments today. He does not have an inhaler, only a nebulizer machine. He is feeling very anxious about the dizziness and shortness of breath. He denies fever, chills, body aches. Review of Systems: Review of Systems: Constitutional: Denies fever or chills Eyes: Denies change in visual acuity HENT: Denies nasal congestion or sore throat Respiratory: shortness of breath Cardiovascular: Denies chest pain or edema GI: Denies abdominal pain, nausea, vomiting, bloody stools or diarrhea : Denies dysuria Musculoskeletal: Denies back pain or joint pain Integument: Denies rash Neurologic: Dizziness. Denies headache, focal weakness or sensory changes Endocrine: Denies polyuria or polydipsia Lymphatic: Denies swollen glands Psychiatric: Denies depression or anxiety Heart Score: Risk Factors: Risk Factors: DM, Current or recent (<one month) smoker, HTN, HLP, family history of CAD, obesity. Risk Scores: Score 0 - 3: 2.5% MACE over next 6 weeks - Discharge Home Score 4 - 6: 20.3% MACE over next 6 weeks - Admit for Clinical Observation Score 7 - 10: 72.7% MACE over next 6 weeks - Early Invasive Strategies Current Medications: Current Meds: Current Medications Medications (Trade) Dose Ordered Sig/Eunice Start Time Stop Time Status Last Admin Dose Admin Albuterol Sulfate (Ventolin) 2.5 mg 1X ONCE 02/24/20 21:00 02/24/20 21:01 DC Hydroxyzine HCl (Atarax) 25 mg 1X STAT 02/24/20 20:57 02/24/20 20:58 DC Sodium Chloride 1,000 ml @ 1,000 mls/hr 1X ONCE 02/24/20 20:45 02/24/20 21:44 02/24/20 20:54 1,000 MLS/HR Allergies: Allergies: Allergies Coded Allergies Type Severity Reaction Last Updated Verified beeswax Allergy Intermediate sob 01/02/20 No fish derived Allergy Intermediate 01/02/20 Yes shellfish derived Allergy Intermediate 01/02/20 Yes Physical Exam: PE: Constitutional: Well developed, well nourished, no acute distress, non-toxic appearance. [] HENT: Normocephalic, atraumatic, bilateral external ears normal, oropharynx moist, no oral exudates, nose normal. [] Eyes: PERRLA, EOMI, conjunctiva normal, no discharge. [] Neck: Normal range of motion, no tenderness, supple, no stridor. [] Cardiovascular: Heart rate regular rhythm, no murmur [] Lungs & Thorax: Bilateral breath sounds with mild end expiratory wheeze [] Abdomen: Bowel sounds normal, soft, no tenderness, no masses, no pulsatile masses. [] Skin: Warm, dry, no erythema, no rash. [] Back: No tenderness, no CVA tenderness. [] Extremities: No tenderness, no cyanosis, no clubbing, ROM intact, no edema. [] Neurologic: Alert and oriented X 3, normal motor function, normal sensory function, no focal deficits noted. [] Psychologic: Affect normal, judgement normal, mood anxious. [] Current Patient Data: Vital Signs: Vital Signs Date Time Temp Pulse Resp B/P (MAP) Pulse Ox O2 Delivery O2 Flow Rate FiO2 02/24/20 20:34 99.7 99 20 129/74 (92) 99 Room Air EKG: EKG: [] Radiology/Procedures: Radiology/Procedures: [] Impressions: Exam: Chest one view INDICATION: Shortness of breath TECHNIQUE: Frontal view of the chest Comparisons: 01/29/2020 FINDINGS: The cardiomediastinal silhouette and pulmonary vessels are within normal limits. The lung and pleural spaces are clear. IMPRESSION: No acute cardiopulmonary process. Electronically signed by: Milagro Alvarado MD (02/24/2020 9:57 PM) [id number] DICTATED AND SIGNED BY: MILAGRO ALVARADO MD DATE: 02/24/20 2157 CC: IDRIS GONZALEZ DO; VIMAL CONNER ~ Course & Med Decision Making: Course & Med Decision Making Pertinent Labs and Imaging studies reviewed. (See chart for details) The patient's labs are remarkable for a potassium of 2.9. I given him 40 mEq by mouth. His chest x-ray is negative for acute findings. Have given him an albuterol breathing treatment. I have also given him 25 mg of hydroxyzine for his anxiety. The patient's labs are unremarkable. I suspect his symptoms could be from the low potassium coupled with mild dehydration from exercise. I have encouraged him to take a multivitamin as well as drink more water. I do not believe he is having an asthma exacerbation. He is stable for discharge at this time. [] Dragon Disclaimer: Dragon Disclaimer: This electronic medical record was generated, in whole or in part, using a voice recognition dictation system. Departure Departure: Impression: Primary Impression: Hypokalemia Disposition: 01 HOME/RESIDENCE PRIOR TO ADM Condition: STABLE Referrals: VIMAL CONNER (PCP) Patient Instructions: Hypokalemia-Brief Justification of Admission: Justification of Admission: Justification of Admission Dx: N/A IDRIS GONZALEZ DO Feb 24, 2020 21:06
[2020-02-24 21:26] LABS: ALBUMIN 4.1 g/dL (3.4-5.0); ALBUMIN/GLOBULIN RATIO 1.3 (1.0-1.7); CALCIUM 8.7 mg/dL (8.5-10.1); GFR 108.5; TOTAL BILIRUBIN 0.6 mg/dL (0.2-1.0); TOTAL PROTEIN 7.3 g/dL (6.4-8.2)
[2020-02-24] MEDS ORDERED: POTASSIUM CHLORIDE 20 MEQ TABLET.ER. PO ONE (22:00)
--- NOTE | 2020-02-24 22:00 | RAD ---
Exam: Chest one view INDICATION: Shortness of breath TECHNIQUE: Frontal view of the chest Comparisons: 01/29/2020 FINDINGS: The cardiomediastinal silhouette and pulmonary vessels are within normal limits. The lung and pleural spaces are clear. IMPRESSION: No acute cardiopulmonary process. Electronically signed by: Milagro Vogt MD (02/24/2020 9:57 PM) [id number]
[2020-02-24 22:17] LABS: AMPHETAMINE/METHAMPHETAMINE NEG (NEG); BARBITURATES NEG (NEG); BENZODIAZEPINES NEG (NEG); CANNABINOIDS NEG (NEG); COCAINE NEG (NEG); METHADONE NEG (NEG); OPIATES NEG (NEG); PHENCYCLIDINE NEG (NEG)
[2020-02-24 22:34] LABS: BILIRUBIN,URINE NEG (NEG); CLARITY,URINE CLEAR; COLOR,URINE YELLOW; GLUCOSE,URINE NEG (NEG)
[2020-02-24 22:35] LABS: BACTERIA,URINE FEW /HPF (0-FEW); NITRITE,URINE NEG (NEG); RBC,URINE OCC /HPF (0-2)
[2020-02-26 08:02] LABS: POTASSIUM 2.9 mmol/L (3.5-5.1)
== END 2020-02-24 23:15 | disposition home or self-care (01) ==
LOC: ER 20:17
DX: E87.6 Hypokalemia (principal); F41.9 Anxiety disorder, unspecified; J45.909 Unspecified asthma, uncomplicated; F32.9 Major depressive disorder, single episode, unspecified; F17.210 Nicotine dependence, cigarettes, uncomplicated; Z91.013 Allergy to seafood; Z88.8 Allergy status to other drugs, medicaments and biological substances
CPT/HCPCS: 36415; 71045; 80053; 80307; 81001; 85025; 96360; 99284; J7030; J7613

== ENCOUNTER 2020-04-01 19:44 | Emergency (ER) | payer SELFPAY ==
[~2020-04-01] VITALS: Ht 170.2 cm; Wt 60.5 kg
[2020-04-01 20:31] VITALS: BP 131/75
--- NOTE | 2020-04-01 20:49 | RAD ---
Exam: Chest one view INDICATION: Drug overdose TECHNIQUE: Frontal view of the chest Comparisons: 02/24/2020 FINDINGS: The cardiomediastinal silhouette and pulmonary vessels are within normal limits. The lung and pleural spaces are clear. IMPRESSION: No acute cardiopulmonary process. Electronically signed by: Milagro Vogt MD (04/01/2020 8:46 PM) SALO
[2020-04-01 21:01] LABS: BARBITURATES NEG (NEG); BENZODIAZEPINES POS (NEG); CANNABINOIDS NEG (NEG); COCAINE NEG (NEG); METHADONE NEG (NEG); OPIATES POS (NEG); PHENCYCLIDINE NEG (NEG)
[2020-04-01 21:04] LABS: AMPHETAMINE/METHAMPHETAMINE NEG (NEG)
[2020-04-01 21:06] LABS: ALBUMIN 4.5 g/dL (3.4-5.0); ALBUMIN/GLOBULIN RATIO 1.4 (1.0-1.7); CALCIUM 9.1 mg/dL (8.5-10.1); CREATININE 0.9 mg/dL (0.7-1.3); GFR 122.5; TOTAL BILIRUBIN 0.6 mg/dL (0.2-1.0); TOTAL PROTEIN 7.8 g/dL (6.4-8.2)
[2020-04-01 21:09] LABS: BACTERIA,URINE 0 /HPF (0-FEW); BILIRUBIN,URINE NEG (NEG); CLARITY,URINE CLEAR; COLOR,URINE YELLOW; GLUCOSE,URINE NEG (NEG); NITRITE,URINE NEG (NEG); RBC,URINE 0 /HPF (0-2); SQUAMOUS EPITHELIAL CELL,UR FEW /LPF; UROBILINOGEN,URINE 0.2 mg/dL (0.2 mg/dL); WBC,URINE OCC /HPF (0-4)
--- NOTE | 2020-04-02 01:48 | EKG ---
[address] [address] Test Date: 2020-04-01 Test Time: 20:01:37 Pat Name: MELISSA FREEMAN Department: Room: Gender: M Hat Model: SANTI : 1990 Requested By: ABDIRIZAK VALDES Order Number: [id number] Reading MD: Measurements Intervals [place] Rate: 74 P: 144 CT: 154 QRS: 110 QRSD: 92 T: 141 QT: 386 QTc: 429 Interpretive Statements SINUS RHYTHM RIGHTWARD AXIS QRS(T) CONTOUR ABNORMALITY CONSISTENT WITH HIGH LATERAL MYOCARDIAL DAMAGE ABNORMAL ECG RI6.02 No previous ECG available for comparison
--- NOTE | 2020-04-02 06:46 | PHYS DOC ---
Past History Past Medical History: Anxiety, Asthma, Depression Additional Past Medical Histor: addicted to prescription narcotics Past Surgical History: Other Additional Past Surgical Histo: Rt. Achilles tendon repair 05/23/18; wisdom teeth and 3 teeth extracted Smoking: Cigarettes, Less than 1pk/day Alcohol Use: None Drug Use: Cocaine General Adult EDM: Chief Complaint: OVERDOSE HPI: HPI: " Took a over dose of street fentanyl.. because of my dental pain...".." I mira blacked out.." Patient is a 29 year old male who presents with complaints of overdose of street fentanyl. Patient states he took the fentanyl for his dental pain. Patient d oes not know how long he was out from the use of fentanyl. Patient shortly after arrival requesting narcotic pain meds for his dental pain. Patient has previous history of abuse of narcotic pain meds. Patient presenting to the ED for narcotic pain meds for his dental pain. Has had previous dental extractions.. Patient does have multiple teeth that appear to be decayed and has gingivitis. No trismus. While patient being worked up left ED without formal discharge because no narcotic pain meds were given for his dental pain during his work-up. Review of Systems: Review of Systems: Constitutional: Denies fever or chills Eyes: Denies change in visual acuity HENT: Complains of dental pain Respiratory: Denies cough or shortness of breath Cardiovascular: Denies chest pain or edema GI: Denies abdominal pain, nausea, vomiting, bloody stools or diarrhea : Denies dysuria Musculoskeletal: Denies back pain or joint pain Integument: Denies rash Neurologic: Denies headache, focal weakness or sensory changes . Complains of loss of consciousness due to street fentanyl ingestion Endocrine: Denies polyuria or polydipsia Lymphatic: Denies swollen glands Psychiatric: Denies depression or anxiety Heart Score: HEART Score for Chest Pain: HEART Score for Chest Pain Response (Comments) Value History Slighlty/Non-Suspicious 0 ECG Normal 0 Age < 45 0 Risk Factors 1 or 2 Risk Factors 1 Total 1 Risk Factors: Risk Factors: DM, Current or recent (<one month) smoker, HTN, HLP, family history of CAD, obesity. Risk Scores: Score 0 - 3: 2.5% MACE over next 6 weeks - Discharge Home Score 4 - 6: 20.3% MACE over next 6 weeks - Admit for Clinical Observation Score 7 - 10: 72.7% MACE over next 6 weeks - Early Invasive Strategies Family History: Family History: Noncontributory to presentation Current Medications: Current Meds: See nursing for home meds Allergies: Allergies: Allergies Coded Allergies Type Severity Reaction Last Updated Verified beeswax Allergy Intermediate sob 01/02/20 No fish derived Allergy Intermediate 01/02/20 Yes shellfish derived Allergy Intermediate 01/02/20 Yes Physical Exam: PE: Constitutional: no acute distress, non-toxic appearance. [] HENT: Normocephalic, atraumatic, bilateral external ears normal, oropharynx moist, no oral exudates, nose normal. Multiple dental caries and gingivitis no trismus. Eyes: PERRLA, EOMI, conjunctiva normal, no discharge. [] Neck: Normal range of motion, no tenderness, supple, no stridor. [] Cardiovascular:Heart rate regular rhythm, no murmur [] Lungs & Thorax: Bilateral breath sounds equal at apex with a few scattered wheezes on auscultation [] Abdomen: Bowel sounds normal, soft, no tenderness, no masses, no pulsatile masses. [] Skin: Warm, dry, no erythema, no rash. [] Back: No tenderness, no CVA tenderness. [] Extremities: No tenderness, no cyanosis, no clubbing, ROM intact, no edema. [] Neurologic: Alert and oriented X 3, normal motor function, normal sensory function, no focal deficits noted. DTRs +2 patella and brachial. No drift.] Psychologic: Affect anxious,, judgement poor insight to his drug dependency , demanding narcotic pain meds for dental pain shortly after arrival. Current Patient Data: Labs: Laboratory Tests Test 04/01/20 20:00 04/01/20 20:11 Urine Collection Type Unknown Urine Color Yellow Urine Clarity Clear Urine pH 6.0 Urine Specific [place] 1.025 Urine Protein Neg (NEG-TRACE) Urine Glucose (UA) Neg mg/dL (NEG) Urine Ketones (Stick) Neg mg/dL (NEG) Urine Blood Neg (NEG) Urine Nitrite Neg (NEG) Urine Bilirubin Neg (NEG) Urine Urobilinogen Dipstick 0.2 mg/dL (0.2 mg/dL) Urine Leukocyte Esterase Neg (NEG) Urine RBC 0 /HPF (0-2) Urine WBC Occ /HPF (0-4) Urine Squamous Epithelial Cells Few /LPF Urine Bacteria 0 /HPF (0-FEW) Urine Mucus Marked /LPF Urine Opiates Screen Pos (NEG) Urine Methadone Screen Neg (NEG) Urine Barbiturates Neg (NEG) Urine Phencyclidine Screen Neg (NEG) Urine Amphetamine/Methamphetamine Neg (NEG) Urine Benzodiazepines Screen Pos (NEG) Urine Cocaine Screen Neg (NEG) Urine Cannabinoids Screen Neg (NEG) Urine Ethyl Alcohol Neg (NEG) Sodium Level 142 mmol/L (136-145) Potassium Level 3.0 mmol/L (3.5-5.1) L Chloride Level 104 mmol/L (98-107) Carbon Dioxide Level 25 mmol/L (21-32) Anion Gap 13 (6-14) Blood Urea Nitrogen 12 mg/dL (8-26) Creatinine 0.9 mg/dL (0.7-1.3) Estimated GFR (Cockcroft-Gault) 122.5 BUN/Creatinine Ratio 13 (6-20) Glucose Level 107 mg/dL (70-99) H Calcium Level 9.1 mg/dL (8.5-10.1) Total Bilirubin 0.6 mg/dL (0.2-1.0) Aspartate Amino Transferase (AST) 15 U/L (15-37) Alanine Aminotransferase (ALT) 20 U/L (16-63) Alkaline Phosphatase 73 U/L (46-116) Total Protein 7.8 g/dL (6.4-8.2) Albumin 4.5 g/dL (3.4-5.0) Albumin/Globulin Ratio 1.4 (1.0-1.7) Ethyl Alcohol Level < 10 mg/dL (0-10) Vital Signs: Vital Signs Date Time Temp Pulse Resp B/P (MAP) Pulse Ox O2 Delivery O2 Flow Rate FiO2 04/01/20 20:31 98.3 81 18 131/75 (93) 100 EKG: EKG: My interpretation EKG shows a sinus rhythm at 74 bpm. Does have some right axis changes. No findings of acute STEMI of contralateral changes [] Radiology/Procedures: Radiology/Procedures: [][address] [address] IMAGING REPORT Signed PATIENT: MELISSA FREEMAN ACCOUNT: [id number] : 1990 LOCATION: ER AGE: 29 SEX: M EXAM STATUS: PRE ER ORD. PHYSICIAN: ABDIRIZAK VALDES MD REASON: DRUG OVERDOSE PROCEDURE: CHEST AP ONLY Exam: Chest one view INDICATION: Drug overdose TECHNIQUE: Frontal view of the chest Comparisons: 02/24/2020 FINDINGS: The cardiomediastinal silhouette and pulmonary vessels are within normal limits. The lung and pleural spaces are clear. IMPRESSION: No acute cardiopulmonary process. Electronically signed by: Milagro Alvarado MD (04/01/2020 8:46 PM) [facility] DICTATED AND SIGNED BY: MILAGRO ALVARADO MD DATE: 04/01/202045 CC: ABDIRIZAK VALDES MD; VIMAL CONNER ~ Course & Med Decision Making: Course & Med Decision Making Pertinent Labs and Imaging studies reviewed. (See chart for details) Pt. left before completing work-up. No formal discharge Impression: 1. History of loss of consciousness secondary to use of street fentanyl 2. History of polysubstance abuse abuse 3. History of narcotic dependence 4. History of narcotics seeking behaviors 5. Hypo-kalemia 3.0 6. Drug screen positive for benzos and opiates 7. Dental caries/ Dental pain. [] Dragon Disclaimer: Michelle Disclaimer: This electronic medical record was generated, in whole or in part, using a voice recognition dictation system. Departure Departure: Disposition: 07 AMA/ELOPED/LWBS Condition: GUARDED Referrals: VIMAL CONNER (PCP) ABDIRIZAK VALDES MD Apr 02, 2020 06:46
== END 2020-04-01 21:10 | disposition left against medical advice (07) ==
LOC: ER 19:44
DX: T40.411A Poisoning by fentanyl or fentanyl analogs, accidental (unintentional), initial encounter (principal); R55 Syncope and collapse; F11.20 Opioid dependence, uncomplicated; E87.6 Hypokalemia; K02.9 Dental caries, unspecified; K05.10 Chronic gingivitis, plaque induced; F41.9 Anxiety disorder, unspecified; J45.909 Unspecified asthma, uncomplicated; F32.9 Major depressive disorder, single episode, unspecified; F17.210 Nicotine dependence, cigarettes, uncomplicated; F14.10 Cocaine abuse, uncomplicated; Z91.013 Allergy to seafood; Z91.018 Allergy to other foods; Y92.89 Other specified places as the place of occurrence of the external cause
CPT/HCPCS: 36415; 71045; 80053; 80307; 81001; 93005; 99285; G0480

== ENCOUNTER 2020-09-05 19:46 | Emergency (ER) | payer SELFPAY ==
[~2020-09-05] VITALS: Ht 170.2 cm; Wt 60.9 kg
[2020-09-05] MEDS ORDERED: IPRATRPIUM/ALBUTEROL 0.5/2.5MG 3 ML NEBU. NEB ONE (20:00)
[2020-09-05] MEDS ORDERED: predniSONE 10 MG TABLET PO ONE (20:00)
--- NOTE | 2020-09-05 20:05 | PHYS DOC ---
Past History Past Medical History: Anxiety, Asthma, Depression Additional Past Medical Histor: addicted to prescription narcotics Past Surgical History: Other Additional Past Surgical Histo: Rt. Achilles tendon repair 05/23/18; wisdom teeth and 3 teeth extracted Smoking: Cigarettes, Less than 1pk/day Alcohol Use: None Drug Use: Cocaine General Adult EDM: Chief Complaint: DYSPNEA/RESPIRATOY DISTRESS HPI: HPI: ".. I need ...a ....breathing... treatment....." Patient is a 30 year old who presents with above hx and complaints of wheezing and dyspnea. Patient states symptoms started after snorting 2 lines of methamphetamine and cocaine. Patient has long history of asthma. And periodic exacerbations. Patient does have an MDI at home. Patient denies any fever or chills. Patient denies any illicit drug use. Patient denies any travel or specific ill contacts. Patient currently satting 100% on room air but is hyperventilating ventilating. Patient only follows with Jamie. Patient has had history of low potassium levels previously with excessive MDI use.. Patient does smoke tobacco and marijuana. Review of Systems: Review of Systems: Constitutional: Denies fever or chills Eyes: Denies change in visual acuity HENT: Denies nasal congestion or sore throat Respiratory: Complains of cough and wheezing Cardiovascular: Denies chest pain or edema GI: Denies abdominal pain, nausea, vomiting, bloody stools or diarrhea : Denies dysuria Musculoskeletal: Denies back pain or joint pain Integument: Denies rash Neurologic: Denies headache, focal weakness or sensory changes Endocrine: Denies polyuria or polydipsia Lymphatic: Denies swollen glands Psychiatric: Denies depression or anxiety Family History: Family History: See nursing for home meds Current Medications: Current Meds: Current Medications Medications (Trade) Dose Ordered Sig/Eunice Start Time Stop Time Status Last Admin Dose Admin Albuterol/ Ipratropium (Duoneb) 3 ml 1X ONCE 09/05/20 20:00 09/05/20 20:01 DC 09/05/20 20:00 3 ML Prednisone (Prednisone) 50 mg 1X ONCE 09/05/20 20:00 09/05/20 20:01 DC 09/05/20 20:01 50 MG Allergies: Allergies: Allergies Coded Allergies Type Severity Reaction Last Updated Verified beeswax Allergy Intermediate sob 01/02/20 No fish derived Allergy Intermediate 01/02/20 Yes shellfish derived Allergy Intermediate 01/02/20 Yes Physical Exam: PE: Constitutional: , no acute distress, non-toxic appearance. [] HENT: Normocephalic, atraumatic, bilateral external ears normal, oropharynx moist, no oral exudates, nose swollen injected turbinates clear rhinorrhea Eyes: PERRLA, EOMI, conjunctiva normal, no discharge. [] Neck: Normal range of motion, no tenderness, supple, no stridor. [] Cardiovascular:Heart rate regular rhythm, no murmur [] Lungs & Thorax: Bilateral breath sounds equal apex with scattered wheezing auscultation []. The stat monitor shows 100% sat on room air Abdomen: Bowel sounds normal, soft, no tenderness, no masses, no pulsatile masses. [] Skin: Warm, dry, no erythema, no rash. Tattoos Back: No tenderness, no CVA tenderness. [] Extremities: No tenderness, no cyanosis, no clubbing, ROM intact, no edema. No cording Neurologic: Alert and oriented X 3, normal motor function, normal sensory function, no focal deficits noted. [] Psychologic: Affect anxious, judgement normal, mood normal. [] Current Patient Data: Labs: Patient declines labs EKG: EKG: Patient declines EKG [] Radiology/Procedures: Radiology/Procedures: Patient declines chest x-ray [] Heart Score: C/O Chest Pain: N/A HEART Score for Chest Pain: HEART Score for Chest Pain Response (Comments) Value History Slighlty/Non-Suspicious 0 ECG Normal 0 Age < 45 0 Risk Factors 1 or 2 Risk Factors 1 Total 1 Risk Factors: Risk Factors: DM, Current or recent (<one month) smoker, HTN, HLP, family history of CAD, obesity. Risk Scores: Score 0 - 3: 2.5% MACE over next 6 weeks - Discharge Home Score 4 - 6: 20.3% MACE over next 6 weeks - Admit for Clinical Observation Score 7 - 10: 72.7% MACE over next 6 weeks - Early Invasive Strategies Course & Med Decision Making: Course & Med Decision Making Pertinent Labs and Imaging studies reviewed. (See chart for details) Encourage patient to stop smoking. Encourage patient stop using illicit drugs. Patient to use MDI 2 puffs 4 times a day patient follow-up with Dr. Conner. Patient return if any concerns. In light of patient's past history of low potassium patient is producing. Return if any concerns. Impression: 1. Illicit drug use 2. Tobacco and marijuana use 3. History of asthma [] Dragon Disclaimer: Michelle Disclaimer: This electronic medical record was generated, in whole or in part, using a voice recognition dictation system. Departure Departure: Referrals: VIMAL CONNER (PCP) ABDIRIZAK VALDES MD Sep 05, 2020 20:05
[2020-09-05] MEDS ORDERED: MAGNESIUM HYDROXIDE 2,400 MG/30 ML ORAL.SUSP. PO ONE (20:15)
[2020-09-05] MEDS ORDERED: POTASSIUM CHLORIDE 20 MEQ TABLET.ER. PO ONE (20:15)
[2020-09-05] MEDS ORDERED: MAGNESIUM HYDROXIDE 2,400 MG/30 ML ORAL.SUSP. ONE (20:16)
[2020-09-05 20:51] VITALS: BP 134/79
== END 2020-09-05 21:22 | disposition home or self-care (01) ==
LOC: ER 19:46
DX: F19.10 Other psychoactive substance abuse, uncomplicated (principal); J45.909 Unspecified asthma, uncomplicated; F41.9 Anxiety disorder, unspecified; F32.9 Major depressive disorder, single episode, unspecified; F17.210 Nicotine dependence, cigarettes, uncomplicated; Z91.013 Allergy to seafood; Z88.8 Allergy status to other drugs, medicaments and biological substances
CPT/HCPCS: 94640; 99284; J7512

== ENCOUNTER 2021-06-28 04:32 | Emergency (ER) | payer SELFPAY ==
[~2021-06-28] VITALS: Ht 170.2 cm; Wt 63.6 kg
[~2021-06-28 04:32] MED LIST changes: -CYCL-331 PO; +CYCL10TA19 PO
[2021-06-28 04:38] VITALS: BP 102/71
--- NOTE | 2021-06-28 04:51 | PHYS DOC ---
Past History Past Surgical History: No Surgical History General Adult EDM: Chief Complaint: MULTIPLE COMPLAINTS HPI: HPI: 31-year-old male presents via EMS for "withdrawal". Patient states that he does fentanyl couple times a day. His last dose was at 1800, about 11 hours ago. He states that he is burning up. "This is fucking withdrawal man. Aint nothing else but fucking withdrawal. Give me Suboxone. Fuck ya'll. You don't know fucking anything. I need shit for withdrawal." The patient is not vaccinated against COVID-19 or influenza. On arrival, his temperature is normal. He is generally extremely uncooperative. Review of Systems: Review of Systems: Constitutional: Chills Eyes: Denies change in visual acuity HENT: Denies nasal congestion or sore throat Respiratory: Denies cough or shortness of breath Cardiovascular: Denies chest pain or edema GI: Denies abdominal pain, nausea, vomiting, bloody stools or diarrhea : Denies dysuria Musculoskeletal: Denies back pain or joint pain Integument: Denies rash Neurologic: Denies headache, focal weakness or sensory changes Endocrine: Denies polyuria or polydipsia Lymphatic: Denies swollen glands Psychiatric: Uncooperative Allergies: Allergies: Allergies Coded Allergies Type Severity Reaction Last Updated Verified No Known Drug Allergies 06/28/21 No Physical Exam: PE: Constitutional: Well developed, well nourished, no acute distress, non-toxic appearance. [] HENT: Normocephalic, atraumatic, bilateral external ears normal, oropharynx moist, no oral exudates, nose normal. [] Eyes: PERRLA, EOMI, conjunctiva normal, no discharge. [] Neck: Normal range of motion, no tenderness, supple, no stridor. [] Cardiovascular: Heart rate regular rhythm, no murmur [] Lungs & Thorax: Bilateral breath sounds clear to auscultation [] Abdomen: Bowel sounds normal, soft, no tenderness, no masses, no pulsatile masses. [] Skin: Warm, dry, no erythema, no rash. [] Back: No tenderness, no CVA tenderness. [] Extremities: No tenderness, no cyanosis, no clubbing, ROM intact, no edema. [] Neurologic: Alert and oriented X 3, normal motor function, normal sensory function, no focal deficits noted. [] Psychologic: Affect uncooperative, demanding. [] Current Patient Data: Vital Signs: Vital Signs Date Time Temp Pulse Resp B/P (MAP) Pulse Ox O2 Delivery O2 Flow Rate FiO2 06/28/21 04:38 98.2 78 24 102/71 (81) 98 EKG: EKG: [] Radiology/Procedures: Radiology/Procedures: [] Heart Score: C/O Chest Pain: N/A Risk Factors: Risk Factors: DM, Current or recent (<one month) smoker, HTN, HLP, family history of CAD, obesity. Risk Scores: Score 0 - 3: 2.5% MACE over next 6 weeks - Discharge Home Score 4 - 6: 20.3% MACE over next 6 weeks - Admit for Clinical Observation Score 7 - 10: 72.7% MACE over next 6 weeks - Early Invasive Strategies Course & Med Decision Making: Course & Med Decision Making Pertinent Labs and Imaging studies reviewed. (See chart for details) The patient had all kinds of demands when he got to the ER. He requested Suboxone and I informed him that this is not a Suboxone clinic. He was told he would not give him any narcotics or controlled substances. Given his chills and body aches, this could be COVID-19 or influenza. We will swab him for these. He is in no apparent distress. He is cussing at all of the staff and not coop erating. He has refused work-up. The patient is stable for discharge at this time. [place] [employer] has been notified. [] Ednaon Disclaimer: Dragmartina Disclaimer: This electronic medical record was generated, in whole or in part, using a voice recognition dictation system. Departure Departure: Impression: Primary Impression: Drug-seeking behavior Disposition: HOME / SELF CARE / HOMELESS Condition: STABLE Patient Instructions: Drug Abuse, FAIDRIS Hercules DO Jun 28, 2021 04:51
== END 2021-06-28 05:15 | disposition home or self-care (01) ==
LOC: MERGE 04:32 → ER 04:32
DX: Z76.5 Malingerer [conscious simulation] (principal); R68.83 Chills (without fever)
CPT/HCPCS: 99283